=== PATIENT | female | born 1945 | race Caucasian/White ===

== ENCOUNTER 2019-02-07 17:30 | Emergency (ER) | payer MEDICARE ==
[~2019-02-07] VITALS: Ht 154.9 cm; Wt 83.0 kg
[~2019-02-07 17:30] MED LIST: ATENOLOL50 MG PO; FISH OIL500 M1 PO; GABAPENTIN300 MG PO; LISINOPRIL5 MG PO; LOVENOX80 MG/0.8 PO; METFORMIN HCL500 MG PO; VITAMIN D5000 UNIT PO; WARFARIN SODIUM5 MG PO
--- OUTSIDE RECORDS SUMMARY | 2019-02-07 17:35 | XMS REPORT ---
Author Author [facility] Address Unknown Phone Unavailable Care Team Providers Care Shampoo Technician Name Role Phone Rachel PICHARDO Unavailable Unavailable Problems This patient has no known problems. Allergies, Adverse Reactions, Alerts This patient has no known allergies or adverse reactions. Medications This patient has no known medications. Results Test Description Test Time Test Comments Text Results Atomic Results Result Comments CPK 2018-04-09 14:41:00 CPK (test code=CPK) 41 U/L 30-135 REPEAT [id number] 14:41:00* Test Item Value Reference Range Comments CKMB (test code=CKMB) 0.78 ng/ml 0.00-2.37 REPEAT 90MINUTESTROPONIN-I [id number] 14:41:00* Test Item Value Reference Range Comments Troponin-I (test code=TROP) 0.019 ng/ml 0.000-0.034 The 99th Percentile URL is 0.034 ng/mL. The Joint Society of Cardiology/[place] College of Cardiology (ESC/ACC) and the National Academy of Clinical Biochemistry Standards of Laboratory Practices (NACB) recommends that the diagnosis of AMI includes the presence of clinical history suggestive of Acute Coronary Syndrome (ACS) and a maximum concentration of cardiac troponin exceeding the 99th percentile of a normal reference population [upper reference limit (URL)] on at least one occasion during the first 24 hours after the clinical event. REPEAT 90MINUTESXR CHEST 2 PA [id number] 13:59:91YM6Tovnsfhkr: XR CHEST 2 PA LATERALOrder Date: 04/09/2018 12:20 PMOrdering Provider: AUSTIN PICAHRDOClinical Indication: CHEST PAINComparison: NoneFindings:The lungs are clear and well-aerated. No pleural effusion or pneumothorax.Cardiac silhouette is normal in size.Impression:No acute pulmonary process.This final report was electronically signed by Dr Meenu Loaiza MD 04/09/20181:52 PMDictated By: Bobbi LOAIZAte: 04/09/2018 13:59TROPONIN-I [id number] 13:24:00* Test Item Value Reference Range Comments Troponin-I (test code=TROP) 0.022 ng/ml 0.000-0.034 The 99th Percentile URL is 0.034 ng/mL. The Joint Society of Cardiology/[place] College of Cardiology (ESC/ACC) and the National Academy of Clinical Biochemistry Standards of Laboratory Practices (NACB) recommends that the diagnosis of AMI includes the presence of clinical history suggestive of Acute Coronary Syndrome (ACS) and a maximum concentration of cardiac troponin exceeding the 99th percentile of a normal reference population [upper reference limit (URL)] on at least one occasion during the first 24 hours after the clinical event. [id number] 13:24:00* Test Item Value Reference Range Comments CPK (test code=CPK) 43 U/L 30-135 [id number] 13:24:00* Test Item Value Reference Range Comments CKMB (test code=CKMB) 0.84 ng/ml 0.00-2.37 [id number], [id number] 13:24:00* Test Item Value Reference Range Comments Myoglobin (test code=FABRICIO) 67.2 ng/ml 0.0-61.5 ER9 Critical values were called to Sandie Funez in ER by [id number] on 13:24 PM. Results were read back by Sandie Funez in ER. PRO-BNP(B-Type Natriuretic Peptide)2018-04-09 13:24:00* Test Item Value Reference Range Comments Pro-BNP(B-Peptide) (test code=PROBNP) 2160 pg/ml 0-125 THE METHODOLOGY FOR DETECTION OF B-NATRIURETIC PEPTIDE HAS BEEN CHANGED TO "NT pro-BNP". THE NORMAL RANGES HAVE CHANGED. PLEASE NOTE THAT RANGES ARE DEFINED BY THE AGE OF THE PATIENT. (<75 years old=0-125 pg/ml 75years and older=0-450pg/ml). VALUES ARE NOT INTERCHANGEABLE BETWEEN METHODS. 11-26-2006 [id number] 13:03:00* Test Item Value Reference Range Comments Glucose (test code=GLU) 156 mg/dl 75-110 BUN (test code=BUN) 23.0 mg/dl 6.0-17.0 Creatinine (test code=CREA) 1.6 mg/dl 0.4-1.2 Sodium (test code=NA) 150 mmol/l 137-145 Potassium (test code=K) 4.3 mmol/l 3.5-5.0 Chloride (test code=CL) 109 mmol/l 98-107 CO2 (test code=CO2) 24 mmol/l 22-30 Calcium (test code=CALC) 9.0 mg/dl 8.4-10.2 T Protein (test code=TP) 6.8 gm/dl 5.1-8.7 Albumin (test code=ALB) 4.2 gm/dl 3.5-4.6 A/G Ratio (test code=AGRAT) 1.6 % 1.1-2.2 AST (SGOT) (test code=AST) 21 U/L 11-36 ALT (SGPT) (test code=ALT) 22 U/L 11-40 Alkaline Phos (test code=ALKP) 38 U/L 47-114 Total Bilirubin (test code=TBIL) 0.7 mg/dl 0.2-1.2 Globulin (test code=GLOBU) 2.6 gm/dl 2.3-3.5 Calcium, Corrected (test code=CALCCORR) 8.8 mg/dl 8.4-10.2 Various formulas exist for corrected serum calcium results, each yielding different values. This corrected result was based on the formula: Corrected Calcium=SerumCalcium + [0.8 * ( 4 - SerumAlbumin)] EGFR if (test code=EGFRAA) 41 mL/min/1.73m\\S\\2 EGFR if Non- (test code=EGFRNA) 34 mL/min/1.73m\\S\\2 Estimated Glomerular Filtration Rate (eGFR) Reference Intervals Decision Points for 18 years and older and average body mass: >=60 Does not exclude kidney disease. 30 - 59 Suggests moderate chronic kidney disease and indicates the need for further investigation including assessment of proteinuria and cardiovascular factors. < 30 Usually indicates a need for referral for assessment and management of chronic kidney failure. ER9PT AND [id number] 12:59:00* Test Item Value Reference Range Comments Protime (test code=PT) 15.4 seconds 9.0-11.9 INR (test code=INR) 1.5 0.9-1.1 INR results are intended ONLY to monitor Oral Anticoagulant therapy in stablized patients. The INR Therapeutic Range is 2.0 - 3.0 Patients with a mechanical heart, the INR Range is 2.5 - 3.5 [id number] 12:59:00* Test Item Value Reference Range Comments aPTT (test code=PTT) 25.1 seconds 23.0-33.0 ER9CBC WITH AUTO [id number] 12:50:00* Test Item Value Reference Range Comments WBC (test code=WBC) 9.95 10\\S\\3/ul 4.80-10.80 RBC (test code=RBC) 4.16 10\\S\\6/ul 4.20-5.40 Hemoglobin (test code=HGB) 12.5 gm/dl 12.0-14.0 Hematocrit (test code=HCT) 39.1 % 37.0-47.0 MCV (test code=MCV) 94.0 fL 81.0-99.0 MCH (test code=MCH) 30.0 pg 27.0-31.0 MCHC (test code=MCHC) 32.0 gm/dl 33.0-37.0 RDW (test code=RDWVC) 13.2 % 11.5-14.5 Platelet (test code=PLT) 191 10\\S\\3/ul 130-400 MPV (test code=MPV) 11.3 fL 7.4-10.4 "NOT MEASURED" RESULTS ARE DISPLAYED WHEN THE INSTRUMENT HAS A SUPPRESSED OR UNREPORTABLE RESULT. THIS WILL MOST OFTEN HAPPEN WITH THE MPV WHEN THERE IS AN ABNORMAL PLATELET DISTRIBUTION DUE TO A CR ITICAL LOW VALUE OR PLATELET CLUMPING. THE RDW MAY BE SUPPRESSED IF THERE ARE MULTIPLE PEAKS PRESENT ON THE RBC HISTOGRAM. IN THIS CASE, A MANUAL REVIEW OF THE SLIDE WILL BE PERFORMED, AND RBC MORPHOLOGY WILL BE NOTED ON THE REPORT. NE% (test code=NE) 76.8 % 42.0-75.0 LY% (test code=LY) 13.6 % 13.0-42.0 MO% (test code=MO) 7.5 % 4.0-14.0 EO% (test code=EO) 0.9 % 1.0-3.0 BA% (test code=BA) 0.6 % 1.0-3.0 IG% (test code=IG%) 0.6 % 0.0-0.4 ER9
--- OUTSIDE RECORDS SUMMARY | 2019-02-07 17:35 | XMS REPORT | Clinical Summary ---
Author Author [facility] Address Unknown Phone Unavailable Care Team Providers Care Supervisor Brine Name Role Phone Demarcus Cho MD PCP Unavailable Allergies No Known Allergies Medications End Date Status Medication Sig Dispensed Refills Start Date Active simvastatin (ZOCOR) 20 MG Take 20 mg by 0 tablet mouth nightly. Active atenolol (TENORMIN) 50 MG Take 50 mg by 0 tablet mouth daily. Active metFORMIN (GLUCOPHAGE) Take 500 mg 0 500 MG tablet by mouth 2 (two) times daily with breakfast and dinner. Active olopatadine (PATANOL) 0.1 Place 1 drop 0 % ophthalmic solution into both eyes 2 (two) times daily. Active aspirin 81 MG EC tablet Take 81 mg by 0 mouth daily. Active cholecalciferol, vitamin Take 2,000 mg 0 D3, 2,000 unit Cap by mouth daily. Active warfarin (COUMADIN) 5 MG Take 5 mg by 0 tablet mouth every Sunday, Sunday, Sunday Take 7 mg Sunday, , Sunday and Sunday . 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 Last Filed Vital Signs Not on file Plan of Treatment Not on file Implants Device Identifier Shelf Expiration Date Model / Serial / Lot Implanted Type Area Manufactur er 04/19/2016 [id number] / / [id number] Stent,Uret F/G Contour Injeciton Uro Stent Right: Ureter [place] 6.0/26 - [id number] [employer] Implanted: Qty: 1 on 12/10/2014 by Moise Lucero MD Results Not on fileafter 02/06/2018 Insurance Payer Benefit Subscriber ID Type Phone Address Plan / Group [facility] xxxxxxxxxxx MEDICARE ADV Advance Directives For more information, please contact: [address] [address] Date Inactivated Comments Code Status Date Activated 12/14/2014 5:31 PM Full Code 12/10/2014 11:50 PM This code status was determined by: Patient 10/31/2014 5:35 PM Full Code 10/26/2014 8:49 PM This code status was determined by: Patient
--- OUTSIDE RECORDS SUMMARY | 2019-02-07 17:35 | XMS REPORT | Continuity of Care Document ---
Author Author [facility] Address [address] [place] [address] ;ext= Care Team Providers Care Rug Cleaner Hand Name Role Phone AUSTIN PICHARDO Admphys AUSTIN PICHARDO Att[facility] Hospital Admission Diagnosis Code Admission Diagnosis Date [id number] Chest pain Social History Element Description Code Description Smoking Status Code System Start Date End Date Smoking Status [id number] Never smoker SNOMED-CT Problems Code Code System Problem Name Start Date End Date Status [id number] SNOMED-CT Neck sprain [address] Description [id number] Drug Treatment Unknown Allergies * No Allergy Data in the System Results Laboratory Results Order: CKMB LOINC Test Result Flag Range Unit Date 1CKMB 0.78 0.00-2.37 ng/ml 04/09/2018 14:01 * Performing Lab Footnotes:* [address] [place] [address] - [id number] - [address] [place] [address] [place] [address] [facility] - MD: DIRECTOR SHAMA GUTEIRREZ Order: CPK LOINC Test Result Flag Range Unit Date 1CPK 41 30-135 U/L 04/09/2018 14:01 * Performing Lab Footnotes:* [facility] [id number] [facility] [address] [facility] [address]ER [address] [place] [address] MEIR High MD: DIRECTOR SHAMA GUTIERREZ Order: TROPONIN I QUANTITATIVE LOINC Test Result Flag Range Unit Date 1Troponin-I 0.019 0.000-0.034 ng/ml 04/09/2018 14:01 Note: The 99th Percentile URL is 0.034 ng/mL. The Joint Society of Cardiology/[place] [employer] (ESC/ACC) and the National [...] first 24 hours after the clinical event. * Performing Lab Footnotes:* [address] [place] [address] - [id number] - [address] [facility] [address]ER [address] [place] [address] MEIR High MD: DIRECTOR SHAMA GUTIERREZ Order: CBC PLATELET AUTO DIFF LOINC Test Result Flag Range Unit Date 76503-5 1Leukocytes^^corrected for nucleated erythrocytes:NCnc:Pt:Bld:Qn:Automated count 9.95 4.80-10.80 10^3/ul 04/09/2018 12:35 789-8 1Erythrocytes:NCnc:Pt:Bld:Qn:Automated count 4.16 L 4.20-5.40 10^6/ul 04/09/2018 12:35 718-7 1Hemoglobin:MCnc:Pt:Bld:Qn 12.5 12.0-14.0 gm/dl 04/09/2018 12:35 4544-3 1Hematocrit:VFr:Pt:Bld:Qn:Automated count 39.1 37.0-47.0 % 04/09/2018 12:35 787-2 1Erythrocyte mean corpuscular volume:EntVol:Pt:RBC:Qn:Automated count 94 81.0-99.0 fL 04/09/2018 12:35 785-6 1Erythrocyte mean corpuscular hemoglobin:EntMass:Pt:RBC:Qn:Automated count 30 27.0-31.0 pg 04/09/2018 12:35 786-4 1Erythrocyte mean corpuscular hemoglobin concentration:MCnc:Pt:RBC:Qn:Automated count 32 L 33.0-37.0 gm/dl 04/09/2018 12:35 788-0 1Erythrocyte distribution width:Ratio:Pt:RBC:Qn:Automated count 13.2 11.5-14.5 % 04/09/2018 12:35 777-3 1Platelets:NCnc:Pt:Bld:Qn:Automated count 191 130-400 10^3/ul 04/09/2018 12:35 69009-8 1Platelet mean volume:EntVol:Pt:Bld:Qn:Automated count 11.3 A 7.4-10.4 fL 04/09/2018 12:35 Note: 'NOT MEASURED' RESULTS ARE DISPLAYED WHEN THE INSTRUMENT HAS A SUPPRESSED OR UNREPORTABLE RESULT. THIS WILL MOST OFTEN HAPPEN WITH THE MPV WHEN THERE IS AN ABNORMAL PLATELET DISTRIBUTION DUE TO A CRITICAL LOW VALUE OR PLATELET CLUMPING. THE RDW MAY BE SUPPRESSED IF THERE ARE MULTIPLE PEAKS PRESENT ON THE RBC HISTOGRAM. IN THIS CASE, A MANUAL REVIEW OF THE SLIDE WILL BE PERFORMED, AND RBC MORPHOLOGY WILL BE NOTED ON THE REPORT. 770-8 1Neutrophils/100 leukocytes:NFr:Pt:Bld:Qn:Automated count 76.8 H 42.0-75.0 % 04/09/2018 12:35 736-9 1Lymphocytes/100 leukocytes:NFr:Pt:Bld:Qn:Automated count 13.6 13.0-42.0 % 04/09/2018 12:35 5905-5 1Monocytes/100 leukocytes:NFr:Pt:Bld:Qn:Automated count 7.5 4.0-14.0 % 04/09/2018 12:35 713-8 1Eosinophils/100 leukocytes:NFr:Pt:Bld:Qn:Automated count 0.9 L 1.0-3.0 % 04/09/2018 12:35 706-2 1Basophils/100 leukocytes:NFr:Pt:Bld:Qn:Automated count 0.6 L 1.0-3.0 % 04/09/2018 12:35 1IG% 0.6 H 0.0-0.4 % 04/09/2018 12:35 * Performing Lab Footnotes:* [address] [place] [address] - [id number] - [address] [place] [address] [place] - MD: DIRECTOR SHAMA GUTIERREZ Order: CMP COMPREHENSIVE METABOLIC PANEL LOINC Test Result Flag Range Unit Date 88053 1Glucose:MCnc:Pt:Urine:Qn 156 H 75-110 mg/dl 04/09/2018 12:35 3094-0 1Urea nitrogen:MCnc:Pt:Ser/Plas:Qn 23 H 6.0-17.0 mg/dl 04/09/2018 12:35 2160-0 1Creatinine:MCnc:Pt:Ser/Plas:Qn 1.6 H 0.4-1.2 mg/dl 04/09/2018 12:35 2951-2 1Sodium:SCnc:Pt:Ser/Plas:Qn 150 H 137-145 mmol/l 04/09/2018 12:35 2823-3 1Potassium:SCnc:Pt:Ser/Plas:Qn 4.3 3.5-5.0 mmol/l 04/09/2018 12:35 5-0 1Chloride:SCnc:Pt:Ser/Plas:Qn 109 H 98-107 mmol/l 04/09/2018 12:35 8-9 1Carbon dioxide:SCnc:Pt:Ser/Plas:Qn 24 22-30 mmol/l 04/09/2018 12:35 35364-2 1Calcium:MCnc:Pt:Ser/Plas:Qn 9 8.4-10.2 mg/dl 04/09/2018 12:35 2885-2 1Protein:MCnc:Pt:Ser/Plas:Qn 6.8 5.1-8.7 gm/dl 04/09/2018 12:35 1751-7 1Albumin:MCnc:Pt:Ser/Plas:Qn 4.2 3.5-4.6 gm/dl 04/09/2018 12:35 1A/G Ratio 1.6 1.1-2.2 % 04/09/2018 12:35 1920-8 1Aspartate aminotransferase:CCnc:Pt:Ser/Plas:Qn 21 11-36 U/L 04/09/2018 12:35 1742-6 1Alanine aminotransferase:CCnc:Pt:Ser/Plas:Qn 22 11-40 U/L 04/09/2018 12:35 6768-6 1Alkaline phosphatase:CCnc:Pt:Ser/Plas:Qn 38 L 47-114 U/L 04/09/2018 12:35 1975-2 1Bilirubin:MCnc:Pt:Ser/Plas:Qn 0.7 0.2-1.2 mg/dl 04/09/2018 12:35 1Globulin 2.6 2.3-3.5 gm/dl 04/09/2018 12:35 1Calcium, Corrected 8.8 8.4-10.2 mg/dl 04/09/2018 12:35 Note: Various formulas exist for corrected serum calcium results, each yielding different values. This corrected result was based on the formula: Corrected Calcium=SerumCalcium + [0.8 * ( 4 - SerumAlbumin)] 1EGFR if 41 mL/min/1.73m^2 04/09/2018 12:35 1EGFR if Non- 34 mL/min/1.73m^2 04/09/2018 12:35 Note: Estimated Glomerular Filtration Rate (eGFR) Reference Intervals Decision Points for 18 years and older and average body mass: >=60 Does not exclude kidney disease. 30 - 59 Suggests moderate chronic kidney disease and indicates the need for further investigation including assessment of proteinuria and cardiovascular factors. < 30 Usually indicates a need for referral for assessment and management of chronic kidney failure. * Performing Lab Footnotes:* [address] [place] [address] [id number] - [address] [address] [facility] Lennox LEYVA: DIRECTOR SHAMA GUTIERREZ Order: MYOGLOBIN PLASMA LOINC Test Result Flag Range Unit Date 1Myoglobin 67.2 HH 0.0-61.5 ng/ml 04/09/2018 12:35 * Performing Lab Footnotes:* [address] [place] [address] [id number] - [address] [facility] [address] [address] MEIR High MD: DIRECTOR SHAMA GUTIERREZ Order: PRO BNP B - NATRIURETIC PEPTIDE LOINC Test Result Flag Range Unit Date 19344-5 1Natriuretic peptide.B prohormone N-Terminal:MCnc:Pt:Ser/Plas:Qn 2160 H 0-125 pg/ml 04/09/2018 12:35 Note: THE METHODOLOGY FOR DETECTION OF B-NATRIURETIC PEPTIDE HAS BEEN CHANGED TO 'NT pro-BNP'. THE NORMAL RANGES HAVE CHANGED. PLEASE NOTE THAT RANGES ARE DEFINED BY THE AGE OF THE PATIENT. (<75 years old=0-125 pg/ml 75years and older=0-450pg/ml). VALUES ARE NOT INTERCHANGEABLE BETWEEN METHODS. 11-26-2006 * Performing Lab Footnotes:* [address] [place] [address] - [id number] - [address] [facility] [address] [address] MEIR High MD: DIRECTOR SHAMA GUTIERREZ Order: PROTIME PT INR LOINC Test Result Flag Range Unit Date 5901-12 1Coagulation tissue factor induced:Time:Pt:PPP:Qn:Coag 15.4 H 9.0-11.9 seconds 04/09/2018 12:35 6301-6 1Coagulation tissue factor induced.INR:RelTime:Pt:PPP:Qn:Coag 1.5 H 0.9-1.1 04/09/2018 12:35 Note: INR results are intended ONLY to monitor Oral Anticoagulant therapy in stablized patients. The INR Therapeutic Range is 2.0 - 3.0 Patients with a mechanical heart, the INR Range is 2.5 - 3.5 * Performing Lab Footnotes:* [address] [place] [address] - [id number] - [address] [facility] [address] [address] MEIR High MD: DIRECTOR SHAMA GUTIERREZ Order: PTT PARTIAL THROMBOPLASTIN TM LOINC Test Result Flag Range Unit Date 01728-7 1Coagulation surface induced:Time:Pt:PPP:Qn:Coag 25.1 23.0-33.0 seconds 04/09/2018 12:35 * Performing Lab Footnotes:* [address] [place] [address] - [id number] - [address] [address] [facility] - MD: DIRECTOR SHAMA GUTIERREZ Radiology Results Order: [id number] XR CHEST 2 PA LATERAL* Exam Completion Date:04/09/2018 12:20 Procedure: XR CHEST 2 PA LATERAL Order Date: 04/09/2018 12:20 PMOrdering Provider: AUSTIN PICHARDOClinical Indication: CHEST PAINComparison: None Findings: The lungs are clear and well-aerated. No pleural effusion or pneumotho rax.Cardiac silhouette is normal in size.Impression: No acute pulmonary process. This final report was electronically signed by Dr Meenu Loaiza MD 04/09/20181:5 2 PMDictated By: CARLOS ENRIQUE LOAIZAKDate: 04/09/2018 13:59 Vital Signs Vitals Value Date Body Temperature 97.6 F 04/09/2018 Respiratory Rate 16 04/09/2018 O2% BldC Oximetry 98 04/09/2018 BP Systolic 106 mmHg 04/09/2018 BP Diastolic 67 mmHg 04/09/2018 Height 65 in 04/09/2018 Weight Measured 179.89 lbs 04/09/2018 BSA (Body Surface Area) 1.54333 04/09/2018 BMI (Body Mass Index) 29.9 04/09/2018 Plan of Care * No data in the system Procedures Code Code System Procedure Name Target Site Date of Procedure XR CHEST 2 PA LATERAL 04/09/2018 13:59 Encounters Date Code Diagnosis Status (ICD10) - S115PMB STRN MUSC FASC TENDON NECK LEVL INT Active Immunizations * No data in the system Functional Status * No data in the system Hospital Discharge Instructions * Discharge Instructions 2* Discharge Diagnosis* cervical strain * Important Information* Consult your physician or return to the Emergency Department immediately if worse, if not better as expected, or if any problems arise. * Follow Up Care* Yes * Important Information* Please understand that you have received care only on an emergency basis. If your condition does not improve, you should call your personal physician for follow-up care. If you do not have a physician, you may call the referred physician listed. * If you have questions about your care or these discharge instructions, you may call the Emergency Department. Please take your discharge paperwork with you to any follow-up appointments. * Follow-Up With:* Primary Care Physician * Medication* While you were in the Emergency Department, you were given medication that may cause sedation. You may feel sleepy or light headed. Do not drive for 4-6 hours after discharge. * DO NOT drink alcohol, drive or operate machinery if taking medicines which cause drowsiness or make you feel light-headed. * Follow up Provider 1* primary dr 5-6 days * Diet* Regular * Patient Teaching* Patient education provided * Pain Control
--- NOTE | 2019-02-08 12:05 | Diagnostic Imaging Report ---
EXAM: Unilateral Lower Extremity Venous Duplex Ultrasound INDICATION: Leg pain and swelling ^[id number] ^1999 COMPARISON: None TECHNIQUE: Wolfe scale, color Doppler and spectral waveform analysis of the right lower extremity deep venous system was performed. FINDINGS: Common Femoral: Fully compressible with normal spontaneous waveforms. Proximal Greater Saphenous: Fully compressible. Femoral: Fully compressible with normal spontaneous waveforms. Normal response to augmentation. Proximal Deep Femoral: Normal spontaneous waveforms. Popliteal: Fully compressible with normal spontaneous waveforms. IMPRESSION: No evidence of deep venous thrombosis above the right calf. Signed by: Dr. Yani Kelsey MD on 02/08/2019 12:02 PM
== END 2019-02-07 20:43 | disposition home or self-care (01) ==
LOC: FSED 17:30
DX: M79.661 Pain in right lower leg (principal); M25.571 Pain in right ankle and joints of right foot; R60.9 Edema, unspecified; I10 Essential (primary) hypertension; E11.9 Type 2 diabetes mellitus without complications; Z86.718 Personal history of other venous thrombosis and embolism; Z85.528 Personal history of other malignant neoplasm of kidney
CPT/HCPCS: 93971; 99283

== ENCOUNTER 2019-12-18 12:09 | Emergency (ER) | payer MEDICARE ==
[~2019-12-18] VITALS: Ht 154.9 cm; Wt 83.0 kg
--- OUTSIDE RECORDS SUMMARY | 2019-12-18 12:12 | XMS REPORT | Summary of Care ---
Author Author [facility] Address Unknown Phone Unavailable Care Team Providers Care Field Insurance Sales Manager Name Role Phone PCP Unavailable Reason for Visit * Reason Comments Post-op Follow-up Encounter Details Care Team Description Date Type Department Santana Ribera MD [address] [place] [address] Post-op Follow-up 07/28/2019 Office Visit [facility] [address], [address] [place] [address] Allergies No Known Allergiesdocumented as of this encounter (statuses as of 08/01/2019) Medications End Date Status Medication Sig Dispensed Refills Start Date Active aspirin EC 81 MG TBEC Take 81 mg by 0 mouth. Active amlodipine (NORVASC) 10 Take 10 mg by 0 MG tablet mouth. 9 Active atenolol (TENORMIN) 50 MG Take 50 mg by 0 tablet mouth. 9 Active baclofen (LIORESAL) 10 MG Take 10 mg by 0 tablet mouth. 8 Active Cholecalciferol (VITAMIN Take by 0 D3) 2000 units TABS mouth. Active enoxaparin (LOVENOX) 80 Inject 1 0 MG/0.8ML injection syringe into 9 the skin twice a day as instructed by the coumadin clinic Active fexofenadine (FAUSTO) Take 180 mg 0 180 MG tablet by mouth. 9 Active furosemide (LASIX) 40 MG Take 40 mg by 0 tablet mouth. 9 Active gabapentin (NEURONTIN) TAKE ONE 0 600 MG tablet TABLET BY 8 MOUTH THREE TIMES A DAY Active lisinopril (PRINIVIL, Take 2.5 mg 0 ZESTRIL) 2.5 MG tablet by mouth. Active tramadol (ULTRAM) 50 MG Take 50 mg by 0 tablet mouth. 9 Active warfarin (COUMADIN) 5 MG Take 2.5 mg 0 tablet by mouth. 9 Active simvastatin (ZOCOR) 20 MG TAKE ONE 0 tablet TABLET BY 9 MOUTH EVERY DAY AT BEDTIME documented as of this encounter (statuses as of 08/01/2019) Active Problems Not on filedocumented as of this encounter (statuses as of 08/01/2019) Social History Date Tobacco Use Types Packs/Day Years Used Never Smoker Smokeless Tobacco: Never Used Drinks/Week oz/Week Comments Alcohol Use Not Currently Sex Assigned at Date Recorded Not on file Industry Job Start Date Occupation Not on file Not on file Not on file Travel End Travel History Travel Start No recent travel history available. documented as of this encounter Last Filed Vital Signs Reading Time Taken Comments Vital Sign 138/87 07/28/2019 9:42 AM CDT Blood Pressure 51 07/28/2019 9:42 AM CDT Pulse - - Temperature 18 07/28/2019 9:42 AM CDT Respiratory Rate - - Oxygen Saturation - - Inhaled Oxygen Concentration 81.6 kg (180 lb) 07/28/2019 9:42 AM CDT Weight 154.9 cm (5' 1") 07/28/2019 9:42 AM CDT Height 34.01 07/28/2019 9:42 AM CDT Body Mass Index documented in this encounter Progress Notes * Santana Ribera MD - 07/28/2019 9:30 AM CDT Reason for visit: Post op visit. I had the pleasure of seeing Ms. Multani at the neurosurgery clinic. The patien t is a 73 y.o. female, about 3 months post op, who underwent C4-6 ACDFP on for C4-C5 and C5-C6 disc herniations, cervical kyphosis, cervical spondylotic myelop athy. Pt is doing very well. She reports near complete resolution of her neck pain a nd arm numbness and is very pleased with the outcome of her surgery Patient retu rns for follow up to discuss their progress. CURRENT MEDICATIONS: Current Outpatient Medications Medication Sig Dispense Refill amlodipine (NORVASC) 10 MG tablet Take 10 mg by mouth. aspirin EC 81 MG TBEC Take 81 mg by mouth. atenolol (TENORMIN) 50 MG tablet Take 50 mg by mouth. baclofen (LIORESAL) 10 MG tablet Take 10 mg by mouth. Cholecalciferol (VITAMIN D3) 2000 units TABS Take by mouth. enoxaparin (LOVENOX) 80 MG/0.8ML injection Inject 1 syringe into the skin tw ice a day as instructed by the coumadin clinic fexofenadine (FAUSTO) 180 MG tablet Take 180 mg by mouth. furosemide (LASIX) 40 MG tablet Take 40 mg by mouth. gabapentin (NEURONTIN) 600 MG tablet TAKE ONE TABLET BY MOUTH THREE TIMES A DAY lisinopril (PRINIVIL, ZESTRIL) 2.5 MG tablet Take 2.5 mg by mouth. simvastatin (ZOCOR) 20 MG tablet TAKE ONE TABLET BY MOUTH EVERY DAY AT BEDTI PA tramadol (ULTRAM) 50 MG tablet Take 50 mg by mouth. warfarin (COUMADIN) 5 MG tablet Take 2.5 mg by mouth. No current facility-administered medications for this visit. REVIEW OF SYSTEMS: General ROS: negative for - chills, hot flashes, malaise or night sweats Respiratory ROS: no cough, shortness of breath, or wheezing Cardiovascular ROS: no chest pain or dyspnea on exertion Musculoskeletal ROS: negative for - joint stiffness, joint swelling or muscular weakness Neurological ROS: negative for - bowel and bladder control changes, confusion, s eizures or visual changes PHYSICAL EXAM: Vitals: 07/28/19 0942 BP: 138/87 Pulse: 51 Resp: 18 Weight: 180 lb (81.6 kg) Height: 5' 1" (1.549 m) Patient is oriented to person, place and time. CN 2-12 are grossly intact bilaterally Motor exam: UE D B T WF WE IM Rt 5/5 5/5 5/5 5/5 5/5 5/5 Lt 5/5 5/5 5/5 5/5 5/5 5/5 LE: IP KE KF DF PF EHL Rt 5/5 5/5 5/5 5/5 5/5 5/5 Lt 5/5 5/5 5/5 5/5 5/5 5/5 Sensory exam : intact to light touch DTR: 2+ throughout Incision: Anterior cervical incision healing well without drainage, erythema, o r edema. Cervical spine X-rays ([facility]) dated 07/10/19- surgical hardware is intact and i n good alignment without evidence of failure or loosening. DIAGNOSIS: Encounter Diagnosis and Orders ICD-10-CM 1. S/P cervical spinal fusion Z98.1 ASSESSMENT/PLAN: Ms. Casandra Multani is a pleasant 73 y.o. female, about 2 weeks post op, who underwent C4-6 ACDFP on 05/02/19 for C4-C5 and C5-C6 disc herniations, cervic al kyphosis, cervical spondylotic myelopathy. Patient is doing very well. Incisi on is healing well without s/sx of infection. We discussed the surgical procedur e performed and expected post operative course. We will see Casandra Lopez ere at 3 months post op. We will get imaging studies (Cervical spine AP/lateral X-rays at [facility]) on our next visit. documented in this encounter Plan of Treatment Health Maintenance Due Date Last Done Comments COLON CANCER SCREENIN1945 COLONOSCOPY MAMMOGRAM ANNUAL 1945 MEDICARE AW 1945 BMI FOLLOW UP PLAN 1963 HEPATITIS C SCREENING 1963 OSTEOPOROSIS SCREENING 2010 FLU VACCINE > 6 MONTHS 06/19/2019 FALL SCREEN 07/28/2020 07/28/2019 TETANUS SHOT (ADULT) 01/05/2026 01/05/2016 PNEUMOVAX >=65 (PPSV23) Completed 10/27/2010 PREVNAR >=65 (PCV13) Completed 01/04/2016 documented as of this encounter Results Not on filedocumented in this encounter Visit Diagnoses Diagnosis S/P cervical spinal fusion - Primary Arthrodesis status documented in this encounter Insurance Type Payer Benefit Subscriber ID Effective Phone Address Plan / Dates Group Medicare [facility]-P [id number] [place], [place] [address] O documented as of this encounter
[2019-12-18] MEDS ORDERED: ALBUTEROL/IPRATROPIUM 3 ML NEB NEB ONE (12:45)
[2019-12-18] MEDS ORDERED: VENTOLIN HFA18 GM PO (13:11)
[2019-12-18] MEDS ORDERED: TESSALON PERLE100 MG PO (13:11)
[2019-12-18] MEDS ORDERED: ALBUTEROL/IPRATROPIUM 3 ML NEB ONE (13:19)
--- NOTE | 2019-12-18 13:54 | Diagnostic Imaging Report ---
Clinical History: ^cough Comparison Study: None Findings: The heart and lungs are within normal limits. The pleural spaces are clear. There is no pneumothorax. Degenerative changes abnormalities are seen. Impression: No active cardiopulmonary disease. Signed by: Keron Scott MD on 12/18/2019 1:51 PM
[2019-12-18 14:13] VITALS: BP 127/72
== END 2019-12-18 14:15 | disposition home or self-care (01) ==
LOC: FSED 12:09
DX: M79.661 Pain in right lower leg (principal); M25.571 Pain in right ankle and joints of right foot; R60.9 Edema, unspecified; I10 Essential (primary) hypertension; E11.9 Type 2 diabetes mellitus without complications; Z86.718 Personal history of other venous thrombosis and embolism; Z85.528 Personal history of other malignant neoplasm of kidney
CPT/HCPCS: 71046; 87400; 99283

== ENCOUNTER 2020-06-21 11:05 | Emergency (ER) | payer MEDICARE ==
[~2020-06-21] VITALS: Ht 154.9 cm; Wt 83.0 kg
[~2020-06-21 11:05] MED LIST changes: +TESSALON PERLE100 MG PO; +VENTOLIN HFA18 GM PO
[2020-06-21] MEDS ORDERED: HYDROCODONE/APAP 5MG-325MG TAB PO ONE (12:30)
[2020-06-21] MEDS ORDERED: SODIUM CHLORIDE FLUSH 10 ML SYR INJ PRN (12:30)
--- OUTSIDE RECORDS SUMMARY | 2020-06-21 12:37 | XMS REPORT | Continuity of Care Document ---
Author Author [facility] t Organization [facility] Address [address] [place] [address] Phone Unavailable Care Team Providers Care Embedded Firmware Developer Name Role Phone BRUNO LEYVA, DERECK PCP Unavailable France Romero MD Attphys Unavailable 1, [address] [facility] Attphys Unavailable Janet DORAN Attphys Unavailable Santana Romero MD Attphys FRANCE ROMERO Attphys Unavailable Tomás SOLANO Attphys Unavailable KAELYN PICHARDO Attphys Unavailable FRANCE ROMERO Admphys Unavailable Rachel PICHARDO Admphys Unavailable Payers Payer Name Policy Type Policy Number Effective Date Expiration Date Aditya mcclain KELSEYCAREKELSEYCARE MEDICARE ADVxxxxxxxxxxx xxxxxxxxxxx [facility] [employer]sey [employer] Medicare Advantage [id number] 2010 00:0 0:00 [facility] Problems Condition Name Condition Details Condition Category Status Onset Date Resolution Date Last Treatment Date Treating Clinician Comments Source Cervical myelopathy Cervical myelopathy Disease Active 2019-05-02 00:00 :00 [facility] Cervical spondylitis Cervical spondylitis Disease Active 00:00:00 [facility] Renal mass, left Renal mass, left Disease Active 2014-12-10 00:00:00 [facility] Abdominal pain of unknown etiology Abdominal pain of unknown do ology Disease Active 2014-10-29 00:00:00 [facility] Renal cell carcinoma Renal cell carcinoma Disease Active 00:00:00 [facility] PAF (paroxysmal atrial fibrillation), CHADS 2 Score = 2 (HTN+ DM) PAF (paroxysmal atrial fibrillation), CHADS 2 Score = 2 (HTN+ DM) Disease Active 2014-10-28 00:00:00 [facility] Normal cardiac stress test, ETT: negative (06-07-11) No rmal cardiac stress test, ETT: negative (06-07-11) Disease Active 2014-10-28 00:00:00 [facility] Dizziness and giddiness Dizziness and giddiness Disease Active 2014-10-26 00:00:00 [facility] Left sided abdominal pain Left sided abdominal pain Disease Ac tive 2014-10-26 00:00:00 [facility] New onset atrial fibrillation New onset atrial fibrillation Disease Active 2014-10-26 00:00:00 [facility] Leg DVT (deep venous thromboembolism), chronic, left L eg DVT (deep venous thromboembolism), chronic, left Disease Active 2014-10-26 00:00:00 [facility] 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 2014-10-26 00:00:00 [facility] Splenic artery aneurysm Splenic artery aneurysm Disease Active 2014-10-26 00:00:00 [facility] Splenic infarction Splenic infarction Disease Active 2014-10-26 00:00:0 0 [facility] DM type 2 (diabetes mellitus, type 2) DM type 2 (diabetes me llitus, type 2) Disease Active 2014-10-26 00:00:00 [facility] HTN (hypertension), echo: EF 60% , +1 MR, (10-27-14) H TN (hypertension), echo: EF 60% , +1 MR, (10-27-14) Disease Active 2014-10-26 00:00:00 [facility] Dyslipidemia Dyslipidemia Disease Active 2014-10-26 00:00:00 [facility] Left renal mass Left renal mass Disease Active 2014-10-26 00:00:00 [facility] Sleep disorder breathing Sleep disorder breathing Disease Acti ve 2014-10-26 00:00:00 [facility] GERD (gastroesophageal reflux disease) GERD (gastroesophagea l reflux disease) Disease Active 2014-10-26 00:00:00 [facility] Neck sprain Neck sprain Problem Active [facility] (LUF/LEVI/SA) Allergies, Adverse Reactions, Alerts Allergy Name Allergy Type Status Severity Reaction(s) Onset Date Inacti ve Date Treating Clinician Comments Source Methylprednisolone Allergy to Substance Active rash 2019-02-07 0 0:00:00 [facility] Losartan Potassium Propensity to adverse reactions Active Itching 2018-12-09 00:00:00 [facility] Methylprednisolone Propensity to adverse reactions Active Itching, Rash 2016-08-07 00:00:00 Face turned red and warm john ng with itching [facility] Social History Social Habit Start Date Stop Date Quantity Comments Source Sex Assigned At [facility] Smoking Status Start Date Stop Date Source Never smoker [facility] Medications Ordered Medication Name Filled Medication Name Start Date Stop Da te Current Medication? Ordering Clinician Indication Dosage Frequency Signature (SIG) Comments Components Source metFORMIN (GLUCOPHAGE) 500 MG tablet 2020-01-13 07:19: 51 2020-01-13 00:00:00 No 500mg Take 500 mg by mouth 2 (two) times daily with breakfast and dinner. [facility] Albuterol Sulfate (Ventolin Hfa) 18 Gm Hfa.aer.ad Albu terol Sulfate (Ventolin Hfa) 18 Gm Hfa.aer.ad 2019-12-18 00:00:00 Yes Ayah Doran Md 2 Four Times Daily as needed for Cough [facility] Benzonatate (Tessalon Perle) 100 Mg Capsule Benzonatat e (Tessalon Perle) 100 Mg Capsule 2019-12-18 00:00:00 Yes Ayah Doran Md 100 Three Times A Day as needed for Cough [facility] glimepiride (AMARYL) 1 MG tablet 2019-10-08 00:00:00 Yes 1mg Take 1 mg by mouth. [facility] furosemide (LASIX) 40 MG tablet 2019-07-10 00:00:00 Yes 40mg Take 40 mg by mouth. [facility] gabapentin (NEURONTIN) 300 MG capsule 2019-04-22 10:58:04 Yes 300mg [id number] Take 300 mg by mouth 3 (three) times daily. [facility] traMADol (ULTRAM) 50 mg tablet 2019-04-22 10:58:04 Yes 50mg Take 50 mg by mouth every 6 (six) hours as needed for Pain. [facility] lisinopril (PRINIVIL,ZESTRIL) 2.5 MG tablet 2019-04-22 10:58:04 Yes 2.5mg QD Take 2.5 mg by mouth daily. [facility] warfarin (COUMADIN) 5 MG tablet 2019-04-22 10:52:14 Yes 2.5mg QD Take 2.5 mg by mouth daily . [facility] enoxaparin (LOVENOX) 80 mg/0.8 mL Syrg 2019-04-22 00:00:00 Yes Inject 1 syringe into the skin twice a day as instructed by the coumadin clinic [facility] amLODIPine (NORVASC) 10 MG tablet 2019-03-31 00:00:00 Yes 10mg Take 10 mg by mouth. [facility] fexofenadine (FAUSTO) 180 MG tablet 2018-12-09 00:00:00 Ye s 180mg Take 180 mg by mouth. [facility] cholecalciferol, vitamin D3, 2,000 unit Cap 2014-10-27 11:53:35 Yes 2000mg QD Take 2,000 mg by mouth daily. [facility] olopatadine (PATANOL) 0.1 % ophthalmic solution 2014-10-26 20:43 :18 Yes 1[drp] Q.5D Place 1 drop into both eyes 2 (two) times daily. [facility] aspirin 81 MG EC tablet 2014-10-26 20:43:18 Yes 81mg QD Take 81 mg by mouth daily. [facility] simvastatin (ZOCOR) 20 MG tablet 2014-10-26 09:29:11 Yes 20mg QD Take 20 mg by mouth nightly. [facility] atenolol (TENORMIN) 50 MG tablet 2014-10-26 09:29:11 Yes 50mg QD Take 50 mg by mouth daily. [facility] Atenolol 50 Mg Tablet Atenolol 50 Mg Tablet Yes 50 Daily [facility] Cholecalciferol (Vitamin D3) (Vitamin D) 5,000 Unit [place] Cholecalciferol (Vitamin D3) (Vitamin D) 5,000 Unit Tablet Yes 5000 Daily [facility] Enoxaparin Sodium (Lovenox) 80 Mg/0.8 Ml Inj Enoxapari n Sodium (Lovenox) 80 Mg/0.8 Ml Inj Yes 80 Twice A Day [facility] Gabapentin 300 Mg Capsule Gabapentin 300 Mg Capsule Yes 300 Bedtime [facility] Lisinopril 5 Mg Tablet Lisinopril 5 Mg Tablet Yes 5 Daily [facility] Metformin Hcl 500 Mg Tablet Metformin Hcl 500 Mg Tablet Yes 500 Twice A Day [facility] Agenda-3 Fatty Acids (Fish Oil) 500 Mg Capsule. Agenda -3 Fatty Acids (Fish Oil) 500 Mg Capsule. Yes 500 Daily I [facility] Warfarin Sodium (Coumadin) 5 Mg Tablet Warfarin Sodium (Coumadin ) 5 Mg Tablet Yes 5 Daily [facility] Vital Signs Vital Name Observation Time Observation Value Comments Source Systolic blood pressure 2020-01-13 09:45:00 116 mm[Hg] [facility] Diastolic blood pressure 2020-01-13 09:45:00 81 mm[Hg] [facility] Heart rate 2020-01-13 09:45:00 69 /min [facility] Respiratory rate 2020-01-13 09:45:00 20 /min [facility] Oxygen saturation in Arterial blood by Pulse oximetry 01-13 09:45:00 98 /min [facility] Body temperature 2020-01-13 08:40:00 36.83 Mady [facility] Body Temperature 2018-04-09 12:27:00 97.6 F [facility] (LUF/LEVI/SA) Respiratory Rate 2018-04-09 12:27:00 16 /min [facility] (F/LEVI/SA) O2% BldC Oximetry 2018-04-09 12:27:00 98 % [facility] (LUF/LEVI/SA) BP Systolic 2018-04-09 12:27:00 106 mm[Hg] [facility] (LUF/LEVI/SA) BP Diastolic 2018-04-09 12:27:00 67 mm[Hg] [facility] (LUF/LEVI/SA) Height 2018-04-09 12:27:[address] [facility] (F/LEVI/SA) Weight Measured 2018-04-09 12:27:[address] [facility] (LUF/LEVI/SA) BMI (Body Mass Index) 2018-04-09 12:27:00 29.9 [facility] (F/LEVI/SA) Procedures Procedure Date / Time Performed Performing Clinician [facility] e CT SPINE CERVICAL WITH IV CONTRAST 2020-01-13 10:23:00 Gold Romero [facility] FL MYELOGRAM CERVICAL 2020-01-13 08:49:00 Santana Romero [facility] Encounters Start Date/Time End Date/Time [facility] ID Source 2019-12-18 12:09:00 2019-12-18 14:15:00 Departed Emergency Room 1 AYAH DORAN [facility] [id number] [facility] 2019-07-28 09:06:20 2019-07-28 11:33:00 Office Visit Santana Majano [facility] [id number] 2019-02-07 17:30:00 2019-02-07 20:43:00 Departed Emergency Room 1 XIOMARAJASON [facility] [id number] [facility] 2018-04-09 12:00:00 2018-04-09 16:00:00 STRN [facility] TENDON NECK MENA ROSE [facility], [address] [place] [address] [facility] [id number] [facility] (LUF /LEVI/SA) Results Test Description Test Time Test Comments Results Result Comments Source CT, SPINE, CERVICAL, WITH IV CONTRAST 2020-01-13 14:03:00 FINAL REPORT EXAMINATION: CT Myelogram of the cervical spine HISTORY: Bilateral upper extremity paresthesias and numbness. Status post ACDF.COMPARISON:Cervical myelogram, same date.TECHNIQUE: Multidetector helical axial images were obtained from the foramen magnum to T1 following myelography . The images were reconstructed using bone and soft tissue algorithms and were viewed in axial, sagittal and coronal planes. For details of the injection procedure, see the report of the myelogram.Dose modulation, iterative reconstruction, and/or weight based adjustment of the mA/kV was utilized to reduce the radiation dose to as low as reasonably achievable. Intrathecal contrast:Please refer to fluoroscopic myelogram report for detail. FINDINGS:Curvature: Straightening of normal lordosis.Vertebrae: Prior anterior cervical discectomy and fusion from C4 through C6. There is no lucency surrounding the hardware or hardware fracture. No evidence of neoplasm, infection, or fracture.Soft tissues: Unremarkable. Spinal canal caliber: Developmentally normal. Degenerative changes:C1-C2: Unremarkable. C2-C3: Mild left neural foraminal narrowing due to uncovertebral and facet arthropathy. No right foraminal or canal stenosis. C3-C4: Diffuse disc osteophyte complex and bilateral uncovertebral and facet arthropathy result in mild bilateral neural foraminal narrowing. No canal stenosis. C4-C5: Moderate right and mild left neural foraminal narrowing due to uncovertebral and facet arthropathy. Small central disc osteophyte protrusion. No canal stenosis. C5-C6: Asymmetric to the left disc osteophyte complex and bilateral uncovertebral arthropathy result in mild right and severe left neural foraminal narrowing. No canal stenosis. C6-C7: Moderate right and mild left neural foraminal narrowing due to diffuse disc osteophyte complex and uncovertebral and facet arthropathy. No canal stenosis. C7-T1: Unremarkable. IMPRESSION:1.Degenerative changes from C2-C3 through C6-C7 with moderate right neural foraminal narrowing at C4-C5 and C6-C7 and severe left foraminal narrowing at C5-C6.2.No canal stenosis.3.Prior anterior cervical discectomy and fusion from C4 through C6. No hardware failure. Signed: Kasie Poole MDReport Verified Date/Time: 01/13/2020 14:03:03 Reading Location: [facility] Room [address] [place] [address] Spine Cervical with IV Contrast 2020-01-13 14:03:00 Interface, External Ris In - 01/13/2020 2:05 PM CSTFINAL REPORT EXAMINATION: CT Myelogram of the cervical spine HISTORY: Bilateral upper extremity paresthesias and numbness. Status post ACDF.COMPARISON:Cervical myelogram, same date.TECHNIQUE: Multidetector helical axial images were obtained from the foramen magnum to T1 following myelography . The images were reconstructed us ing bone and soft tissue algorithms and were viewed in axial, sagittal and coronal planes. For details of the injection procedure, see the report of the myelogram.Dose modulation, iterative reconstruction, and/or weight based adjustment of the mA/kV was utilized to reduce the radiation dose to as low as reasonably achievable. Intrathecal contrast:Please refer to fluoroscopic myelogram report for detail. FINDINGS:Curvature: Straightening of normal lordosis.Vertebrae: Prior anterior cervical discectomy and fusion from C4 through C6. There is no lucency surrounding the hardware or hardware fracture. No evidence of neoplasm, infection, or fracture.Soft tissues: Unremarkable. Spinal canal caliber: Developmentally normal. Degenerative changes:C1-C2: Unremarkable. C2-C3: Mild left neural foraminal narrowing due to uncovertebral and facet arthropathy. No right foraminal or canal stenosis. C3-C4: Diffuse disc osteophyte complex and bilateral uncovertebral and facet arthropathy result in mild bilateral neural foraminal narrowing. No canal stenosis. C4-C5: Moderate right and mild left neural foraminal narrowing due to uncovertebral and facet arthropathy. Small central disc osteophyte protrusion. No canal stenosis. C5-C6: Asymmetric to the left disc osteophyte complex and bilateral uncovertebral arthropathy result in mild right and severe left neural foraminal narrowing. No canal stenosis. C6-C7: Moderate right and mild left neural foraminal narrowing due to diffuse disc osteophyte complex and uncovertebral and facet arthropathy. No canal stenosis. C7-T1: Unremarkable. IMPRESSION:1.Degenerative changes from C2-C3 through C6-C7 with moderate right neural foraminal narrowing at C4-C5 and C6-C7 and severe left foraminal narrowing at C5-C6.2.No canal stenosis.3.Prior anterior cervical discectomy and fusion from C4 through C6. No hardware failure. Signed: Kasie Pooleort Verified Date/Time: 01/13/2020 14:03:03 Reading Location: [facility] Reading Room [address] [place] [address] [facility], MYELOGRAM, CERVICAL 2020-01-13 10:46:00 Reason for Exam: ->r20.9 z98.1 m50.30 FINAL REPORT Exam ination: Fluoroscopic guided lumbar puncture for cervical myelographic imaging Clinical indication: Upper extremity paresthesias and numbness. Status post ACDF. Physician: Dr. Kasie Poole Anesthesia: None. Medications:1% lidocaine and bicarbonate. Exposure/ DAP: 1589.80 mGy-am2Mkvkir time: 00:00:22 Procedure: Informed consent was obtained from the patient following delineation of the risks, benefits, and alternatives to the procedure. Patient was then taken to the fluoroscopy suite and placed prone on the table. Preliminary imaging of the lumbosacral spine was performed. The patient's back was marked, prepped and draped in the usual sterile fashion. After administration of local anesthesia, a 22-gauge spinal needle was advanced to the midline of the L5-S1 level utilizing image guidance. Once needle location was confirmed, 12 mL of Isovue 300M was instilled intrathecally. The needle was removed and sterile bandage was applied. The patient tolerated the procedure well. Additional neutral, flexion, extension and weight bearing views were performed. The patient was then taken to the CT suite for further imaging. Patient was discharged home after two hours nurse monitoring. Impression: Fluoroscopic-guided lumbar puncture with successful intrathecal administration of contrast for cervical myelographic imaging. Signed: Kasie Poole Verified Date/Time: 01/13/2020 10:46:08 Reading Location: [facility] Reading Room [address] [place] [address] myelogram cervical 2020-01-13 10:46:00 Interf holly, External Ris In - 01/13/2020 10:48 AM CSTFINAL REPORT Examination: Fluoroscopic guided lumbar puncture for cervical myelographic imaging Clinical indication: Upper extremity paresthesias and numbness. Status post ACDF. Physician: Dr. Kasie Poole Anesthesia: None. Medications:1% lidocaine and bicarbonate. Exposure/ DAP: 1589.80 mGy-zu1Smitlo time: 00:00:22 Procedure: Informed consent was obtained from the patient following delineation of the risks, benefits, and alternatives to the procedure. Patient was then taken to the fluoroscopy suite and placed prone on the table. Preliminary imaging of the lumbosacral spine was performed. The patient's back was marked, prepped and draped in the usual sterile fashion. After administration of local anesthesia, a 22-gauge spinal needle was advanced to the midline of the L5-S1 level utilizing image guidance. Once needle location was confirmed, 12 mL of Isovue 300M was instilled intrathecally. The needle was removed and sterile bandage was applied. The patient tolerated the procedure well. Additional neutral, flexion, extension and weight bearing views were performed. The patient was then taken to the CT suite for further imaging. Patient was discharged home after two hours nurse monitoring. Impression: Fluoroscopic-guided lumbar puncture with successful intrathecal administration of contrast for cervical myelographic imaging. Signed: Kasie Poole MDReport Verified Date/Time: 01/13/2020 10:46:08 Reading Location: [facility] Reading Room [facility] B01.626 [facility] CXR 2 VIEW - HOPD 2019-12-18 13:51:00 [place] [address] Patient Name: LINDA BAIRES MR #: [id number] : 1945 Age/Sex: 74/F Req #: [id number] Adm Physician: Ordered by: AYAH DORAN MD Report #: [id number] Location: [facility] Room/Bed: Procedure: [id number] HOPD/CXR 2 VIEW - HOPD Exam Date: 12/18/19 Exam Time: 1301 REPORT STATUS: Signed Clinical History: cough Comparison Study: None Findings: The heart and lungs are within normal limits. The pleural spaces are clear. There is no pneumothorax. Degenerative changes abnormalities are seen. Impression: No active cardiopulmonary disease. Signed by: Keron Scott MD on 12/18/2019 1:51 PM Dictated By: KERON SCOTT MD 1351 Transcribed By: CORNELIUS on 12/18/19 1351 COPY TO: AYAH DORAN MD TISSUE EXAM 2019-05-08 16:27:00 Surgical Pat hology Report Case: [id number] Authorizing Provider: Santana Romero MD Collected: 05/02/2019 1200 Ord ering Location: [facility] PERIOPERATIVE Received: 05/02/2019 1333 SERVICES Pathologist: Luigi Santillan MD Specimen: Spine, Cervical, DISC C4-C6 VERTEBRAL COLUMN, INTERVERTEBRAL DISC, C4-6, DISCECTOMY:FRAGMENTS OF FIBROCARTILAGE WITH MILD DEGENERATIVE CHANGESSMALL FRAGMENTS OF BONE Signing Pathologist Direct Phone Line: [phone] signed by Luigi Kendall MD on 05/08/2019 at 4:27 [id number]; [id number], cervical disc L4- P3Ouxoisfs in formalin labeled with the patient's name, accession number and "spine, cervical" is 2.0 x 1.0 x 0.3 cm aggregate of multiple, irregular wolfe- white fibrocartilaginous tissue. The specimen is entirely submitted in A1, following decalcification. CG/pl Performed SHORT-LATENCY SPE, ALL LIMBS 2019-05-05 16:53:00 Reason for exam:->cervical spondylitis,myelopathy INTRAOPERATIVE MONITORING REPORT Kulwinder weaver name: Linda Baires [facility] [place], [place] Surgery Date: 05/02/19 [place] Pro: [id number] Monitoring began at 0922 and ended at 1155 Surgeon: Santana Romero M.D. Examining Neurologist: Cyn Cardenas M.D. Monitoring Technologist: ASA Darby Procedure: ACDF C4-6 Stimulation Parameters: Ulnar nerves individually stimulated at the wrist Rate 4.7Hz, Intensity 35mA, Duration 0.3ms Posterior Tibial nerves individually stimulated at the ankle Rate 4.7Hz, Intensity 70mA, Duration 0.3ms Filters 30-500Hz, Notch Off Recording Parameters: EP1, EP2, CPz, CP3, CP4, C5, and FPz Free-running EEG recorded with bipolar derivation, using modified International 10/20 placements: C3-FPZ, C4-FPZ Description: Intraoperative neurophysiological monitoring was performed using a combination of upper and lower extremity somatosensory evoked potentials and free-running EEG. A real-time connection with the examining neurologist was established and maintained throughout the operative procedure by the monitoring technologist. Upper extremity somatosensory evoked potentials were recorded centrally at the cervical and cortical levels following ulnar nerve stimulation. Lower extremity somatosensory evoked potentials were recorded centrally at the cervical and cortical levels following posterior tibial nerve stimulation. SSEPs were present and reproducible in all extremities at baselines. All SSEP responses were stable with baselines throughout the case and at closing. Surgeon aware of all responses in real time throughout the case and at closing. Free-running EEG remained symmetrical throughout the procedure with no focal changes noted to occur. Conclusion: These results suggest the absence of untoward, secondary effects on the posterior column function as a consequence of this surgical procedure. Cyn Cardenas M.D.M50.03 -GLUCOSE METER 2019-05-03 12:12:00 Test Item POC-GLUCOSE METER (BEAKER) (test code = 1538) 222 mg/dL 70-110 H TESTED AT [facility] [address] [facility] [address] CBC W/PLT COUNT & AUTO [id number] 08:44:00* Test Item Value Reference Range Interpretation Comments WHITE BLOOD CELL COUNT (BEAKER) (test code = 775) 11.9 K/ L 3.5- 10.5 H RED BLOOD CELL COUNT (BEAKER) (test code = 761) 3.94 M/ L 3.93-5 .22 HEMOGLOBIN (BEAKER) (test code = 410) 11.5 GM/DL 11.2-15.7 HEMATOCRIT (BEAKER) (test code = 411) 36.1 % 34.1-44.9 MEAN CORPUSCULAR VOLUME (BEAKER) (test code = 753) 91.6 fL 79. 4-94.8 MEAN CORPUSCULAR HEMOGLOBIN (BEAKER) (test code = 751) 29.2 pg 25.6-32.2 MEAN CORPUSCULAR HEMOGLOBIN CONC (BEAKER) (test code = 752) 31.9 GM/DL 32.2-35.5 L RED CELL DISTRIBUTION WIDTH (BEAKER) (test code = 412) 13.2 % 11.7-14.4 PLATELET COUNT (BEAKER) (test code = 756) 155 K/CU MM 150-450 MEAN PLATELET VOLUME (BEAKER) (test code = 754) 11.4 fL 9.4-12 .3 NUCLEATED RED BLOOD CELLS (BEAKER) (test code = 413) 0 /100 WBC 0 -0 NEUTROPHILS RELATIVE PERCENT (BEAKER) (test code = 429) 90 % LYMPHOCYTES RELATIVE PERCENT (BEAKER) (test code = 430) 7 % MONOCYTES RELATIVE PERCENT (BEAKER) (test code = 431) 2 % EOSINOPHILS RELATIVE PERCENT (BEAKER) (test code = 432) 0 % BASOPHILS RELATIVE PERCENT (BEAKER) (test code = 437) 0 % NEUTROPHILS ABSOLUTE COUNT (BEAKER) (test code = 670) 10.73 K/ L 1.56-6.13 H LYMPHOCYTES ABSOLUTE COUNT (BEAKER) (test code = 414) 0.81 K/ L 1.18-3.74 L MONOCYTES ABSOLUTE COUNT (BEAKER) (test code = 415) 0.25 K/ L 0. 24-0.36 EOSINOPHILS ABSOLUTE COUNT (BEAKER) (test code = 416) 0.00 K/ L 0.04-0.36 L BASOPHILS ABSOLUTE COUNT (BEAKER) (test code = 417) 0.03 K/ L 0. 01-0.08 IMMATURE GRANULOCYTES-RELATIVE PERCENT (BEAKER) (test code = 2801) 1 % 0-1 [id number] 05:10:00* Test Item Value Reference Range Interpretation Comments MAGNESIUM (BEAKER) (test code = 627) 2.0 mg/dL 1.6-2.6 BASIC METABOLIC [id number] 05:10:00* Test Item Value Reference Range Interpretation Comments SODIUM (BEAKER) (test code = 381) 140 meq/L 136-145 POTASSIUM (BEAKER) (test code = 379) 4.6 meq/L 3.5-5.1 CHLORIDE (BEAKER) (test code = 382) 112 meq/L 98-107 H CO2 (BEAKER) (test code = 355) 22 meq/L 22-29 BLOOD UREA NITROGEN (BEAKER) (test code = 354) 12 mg/dL 7-21 CREATININE (BEAKER) (test code = 358) 1.19 mg/dL 0.57-1.25 GLUCOSE RANDOM (BEAKER) (test code = 652) 193 mg/dL 70-105 H CALCIUM (BEAKER) (test code = 697) 9.0 mg/dL 8.4-10.2 EGFR (BEAKER) (test code = 1092) 44 mL/min/1.73 sq m ESTIMATED GFR IS NOT ACCURATE CREATININE CLEARANCE IN PREDICTING GLOMERULAR FILTRATION RATE. ESTIMATED GFR IS NOT APPLICABLE FOR DIALYSIS PATIENTS. B-TYPE NATRIURETIC FACTOR (BNP)2019-05-02 19:05:00* Test Item Value Reference Range Interpretation Comments B-TYPE NATRIURETIC PEPTIDE (BEAKER) (test code = 700) 272 pg/mL 0-100 H [id number] 18:59:00* Test Item Value Reference Range Interpretation Comments MAGNESIUM (BEAKER) (test code = 627) 1.9 mg/dL 1.6-2.6 BASIC METABOLIC [id number] 18:59:00* Test Item Value Reference Range Interpretation Comments SODIUM (BEAKER) (test code = 381) 138 meq/L 136-145 POTASSIUM (BEAKER) (test code = 379) 4.8 meq/L 3.5-5.1 CHLORIDE (BEAKER) (test code = 382) 110 meq/L 98-107 H CO2 (BEAKER) (test code = 355) 19 meq/L 22-29 L BLOOD UREA NITROGEN (BEAKER) (test code = 354) 12 mg/dL 7-21 CREATININE (BEAKER) (test code = 358) 1.13 mg/dL 0.57-1.25 GLUCOSE RANDOM (BEAKER) (test code = 652) 211 mg/dL 70-105 H CALCIUM (BEAKER) (test code = 697) 8.8 mg/dL 8.4-10.2 EGFR (BEAKER) (test code = 1092) 47 mL/min/1.73 sq m ESTIMATED GFR IS NOT ACCURATE CREATININE CLEARANCE IN PREDICTING GLOMERULAR FILTRATION RATE. ESTIMATED GFR IS NOT APPLICABLE FOR DIALYSIS PATIENTS. RAD, CHEST, 1 VIEW, NON [id number] 18:28:00Reason for exam:->afib, post opShould this be performed at the bedside?->YesFINAL REPORT Chest. HISTORY: Atrial fibrillation, postoperative. COMPARISON STUDY: None available. FINDINGS: The cardiac size is enlarged. Some atelectasis or fibrosis is seen in the left mid to lower lung field. No pleural effusion or pneumothorax is seen. Degenerative changes are noted. Postsurgical changes in the cervical spine. IMPRESSION: Linear opacities in the left mid to lower lung field, most likely atelectasis or fibrosis. In the right clinical setting, a superimposed infection would be difficult to exclude. Clinical correlation and short term imaging follow-up could be made to exclude other etiologies. Signed: Keron Scotteport Verified Date/Time: 05/02/2019 18:28:18 Reading Location: [facility] C013W Consult Reading Room W/PLT COUNT & AUTO DIFFERENTIAL 2019-05-02 18:19:00* Test Item Value Reference Range Interpretation Comments WHITE BLOOD CELL COUNT (BEAKER) (test code = 775) 11.3 K/ L 3.5- 10.5 H RED BLOOD CELL COUNT (BEAKER) (test code = 761) 4.21 M/ L 3.93-5 .22 HEMOGLOBIN (BEAKER) (test code = 410) 12.6 GM/DL 11.2-15.7 HEMATOCRIT (BEAKER) (test code = 411) 38.7 % 34.1-44.9 MEAN CORPUSCULAR VOLUME (BEAKER) (test code = 753) 91.9 fL 79. 4-94.8 MEAN CORPUSCULAR HEMOGLOBIN (BEAKER) (test code = 751) 29.9 pg 25.6-32.2 MEAN CORPUSCULAR HEMOGLOBIN CONC (BEAKER) (test code = 752) 32.6 GM/DL 32.2-35.5 RED CELL DISTRIBUTION WIDTH (BEAKER) (test code = 412) 13.3 % 11.7-14.4 PLATELET COUNT (BEAKER) (test code = 756) 165 K/CU MM 150-450 MEAN PLATELET VOLUME (BEAKER) (test code = 754) 10.8 fL 9.4-12 .3 NUCLEATED RED BLOOD CELLS (BEAKER) (test code = 413) 0 /100 WBC 0 -0 NEUTROPHILS RELATIVE PERCENT (BEAKER) (test code = 429) 92 % LYMPHOCYTES RELATIVE PERCENT (BEAKER) (test code = 430) 6 % MONOCYTES RELATIVE PERCENT (BEAKER) (test code = 431) 1 % EOSINOPHILS RELATIVE PERCENT (BEAKER) (test code = 432) 0 % BASOPHILS RELATIVE PERCENT (BEAKER) (test code = 437) 0 % NEUTROPHILS ABSOLUTE COUNT (BEAKER) (test code = 670) 10.37 K/ L 1.56-6.13 H LYMPHOCYTES ABSOLUTE COUNT (BEAKER) (test code = 414) 0.70 K/ L 1.18-3.74 L MONOCYTES ABSOLUTE COUNT (BEAKER) (test code = 415) 0.15 K/ L 0. 24-0.36 L EOSINOPHILS ABSOLUTE COUNT (BEAKER) (test code = 416) 0.01 K/ L 0.04-0.36 L BASOPHILS ABSOLUTE COUNT (BEAKER) (test code = 417) 0.03 K/ L 0. 01-0.08 IMMATURE GRANULOCYTES-RELATIVE PERCENT (BEAKER) (test code = 2801) 1 % 0-1 POCT-GLUCOSE [id number] 17:32:00* Test Item Value Reference Range Interpretation Comments POC-GLUCOSE METER (BEAKER) (test code = 1538) 199 mg/dL 70-110 H TESTED AT [facility] [address] [facility] [address] POCT-GLUCOSE [id number] 12:45:00* Test Item Value Reference Range Interpretation Comments POC-GLUCOSE METER (BEAKER) (test code = 1538) 171 mg/dL 70-110 H TESTED AT [facility] [address] [facility] [facility] [address] [place], [employer] CLE[employer]ER IN OR/30 MINUTE [id number] 12:23:00Reason for exam:-> CERVIVAL SPONDYLITIS, MYE;OPATHYFINAL REPORT TECHNIQUE: Fluoroscopic images from cervical spine discectomy and fusion procedure. INDICATION: 72-year-old woman with cervical spondylitis and myelopathy. COMPARISON: Cervical spine radiographs from earlier same date. IMPRESSION:Fluoroscopic images from cervical spine discectomy and fusion procedure, not obtained by the undersigned. Please refer to operative note for more details of the procedure and findings. Fluoroscopy time: 5.4 secondsNumber of images: 3 Signed: Perez Dianaort Verified Date/Time: 05/02/2019 12:23:22 Reading Location: [address] Consult Reading Room , ASSEM[employer] CLEANER IN OR/30 MINUTE [id number] 11:00:00Reason for exam:->cervical spondylitis, myelopathyFINAL REPORT TECHNIQUE: Lateral intraoperative view of the cervical spine. INDICATION: 72-year-old woman with cervical spondylitis and myelopathy. COMPARISON: None. IMPRESSION:Localization instrument projects over the C4 vertebral body. Signed: Perez Diana Verified Date/Time: 05/02/2019 11:00:28 Reading Location: [facility] Radiology Reading Room -GLUCOSE [id number] 08:45:00* Test Item Value Reference Range Interpretation Comments POC-GLUCOSE METER (BEAKER) (test code = 1538) 180 mg/dL 70-110 H TESTED AT [facility] [address] [facility] [address] PROTHROMBIN TIME/[id number] 08:29:00* Test Item Value Reference Range Interpretation Comments PROTIME (BEAKER) (test code = 759) 13.2 seconds 11.9-14.2 INR (BEAKER) (test code = 370) 1.1 <=5.9 Effective 04/16/2019: PT Reference Range ChangeNew: 11.9-14.2 Previous: 11.7-14. 7RECOMMENDED COUMADIN/WARFARIN INR THERAPY RANGESSTANDARD DOSE: 2.0-3.0 Include s: PROPHYLAXIS for venous thrombosis, systemic embolization; TREATMENT for venou s thrombosis and/or pulmonary embolus.HIGH RISK: Target INR is 2.5-3.5 for patie nts wiht mechanical heart valves.US LOW EXT VEINS LIMITED [id number] 12:00:00 [place] [address] Patient Name: LINDA BAIRES MR #: [id number] : [birth year] Age/Sex: 73/F Req #: [id number] Adm Physician: Ordered by: JASON SOLANO MD Report #: [id number] Location: [facility] Room/Bed: Procedure: [id number] H OPD/US LOW EXT VEINS LIMITED UNI Exam Date: 02/07/19 Exam Time: 1999 REPORT STATUS: Sig [place] EXAM: Unilateral Lower Extremity Venous Duplex Ultrasound INDICATION: Leg pain and swelling [id number] COMPARISON: None TECHNIQ UE: Wolfe scale, color Doppler and spectral waveform analysis of the right lowe r extremity deep venous system was performed. FINDINGS: Common Femoral: Fully compressible with normal spontaneous waveforms. Proximal Gr eater Saphenous: Fully compressible. Femoral: Fully sally sible with normal spontaneous waveforms. Normal response to augmentation. Proximal Deep Femoral: Normal spontaneous waveforms. Popliteal: Fully compressible with normal spontaneous waveforms. IMPRESSI ON: No evidence of deep venous thrombosis above the right calf. Sig [place] by: Dr. Yani Doherty MD on 02/08/2019 12:02 PM Dictated By: AFRICA DOHERTY MD 120 2 Transcribed By: CORNELIUS on 02/08/19 1202 COPY TO: JASON SOLANO MD [id number] 14:41:00* Test Item Value Reference Range Interpretation Comments CPK (test code = CPK) 41 U/L 30-135 REPEAT [id number] 14:41:00* Test Item Value Reference Range Interpretation Comments CKMB (test code = CKMB) 0.78 ng/ml 0.00-2.37 REPEAT 90MINUTESTROPONIN-I [id number] 14:41:00* Test Item Value Reference Range Interpretation Comments Troponin-I (test code = TROP) 0.019 ng/ml 0.000-0.034 The 99th Percentile URL is 0.034 ng/mL. The Joint Society of Cardiology/[place] [employer] (ESC/ACC) and the National [...] clinical event. REPEAT 90MINUTESXR CHEST 2 PA [id number] 13:59:70ZZ6Tisrvpvwz: XR CHEST 2 PA LATERALOrder Date: 04/09/2018 12:20 PMOrdering Provider: AUSTIN Huberinical Indication: CHEST PAINComparison: NoneFindings:The lungs are clear and well-aerated. No pleural effusion or pneumothorax.Cardiac silhouette is normal in size.Impression:No acute pulmonary process.This final report was electronically signed by Dr Meenu Loaiza MD 04/09/20181:52 PMDictated By: Bobbi LOAIZAte: 04/09/2018 13:59TROPONIN-I [id number] 13:24:00* Test Item Value Reference Range Interpretation Comments Troponin-I (test code = TROP) 0.022 ng/ml 0.000-0.034 The 99th Percentile URL is 0.034 ng/mL. The Joint Society of Cardiology/[place] [employer] (ESC/ACC) and the National [...] first 24 hours after the clinical event. [id number] 13:24:00* Test Item Value Reference Range Interpretation Comments CPK (test code = CPK) 43 U/L 30-135 [id number] 13:24:00* Test Item Value Reference Range Interpretation Comments CKMB (test code = CKMB) 0.84 ng/ml 0.00-2.37 FE1HBSHPVPBL, [id number] 13:24:00* Test Item Value Reference Range Interpretation Comments Myoglobin (test code = FABRICIO) 67.2 ng/ml 0.0-61.5 HH ER9 Critical values were called to Sandie Funez in ER by [id number] on 13:24 PM. Results were read back by Sandie Funez in ER. PRO-BNP(B-Type Natriuretic Peptide)2018-04-09 13:24:00* Test Item Value Reference Range Interpretation Comments Pro-BNP(B-Peptide) (test code = PROBNP) 2160 pg/ml 0-125 H THE METHODOLOGY FOR DETECTION OF B-NATRIURETIC PEPTIDE HAS BEEN CHANGED TO "NT pro-BNP". THE NORMAL RANGES HAVE CHANGED. PLEASE NOTE THAT RANGES ARE DEFINED BY THE AGE OF THE PATIENT. (<75 years old = 0-125 pg/ml 75years and older = 0-450pg/ml). VALUES ARE NOT INTERCHANGEABLE BETWEEN METHODS. 11-26-2006 [id number] 13:03:00* Test Item Value Reference Range Interpretation Comments Glucose (test code = GLU) 156 mg/dl 75-110 H BUN (test code = BUN) 23.0 mg/dl 6.0-17.0 H Creatinine (test code = CREA) 1.6 mg/dl 0.4-1.2 H Sodium (test code = NA) 150 mmol/l 137-145 H Potassium (test code = K) 4.3 mmol/l 3.5-5.0 Chloride (test code = CL) 109 mmol/l 98-107 H CO2 (test code = CO2) 24 mmol/l 22-30 Calcium (test code = CALC) 9.0 mg/dl 8.4-10.2 T Protein (test code = TP) 6.8 gm/dl 5.1-8.7 Albumin (test code = ALB) 4.2 gm/dl 3.5-4.6 A/G Ratio (test code = AGRAT) 1.6 % 1.1-2.2 AST (SGOT) (test code = AST) 21 U/L 11-36 ALT (SGPT) (test code = ALT) 22 U/L 11-40 Alkaline Phos (test code = ALKP) 38 U/L 47-114 L Total Bilirubin (test code = TBIL) 0.7 mg/dl 0.2-1.2 Globulin (test code = GLOBU) 2.6 gm/dl 2.3-3.5 Calcium, Corrected (test code = CALCCORR) 8.8 mg/dl 8.4-10.2 Various formulas exist for corrected serum calcium results, each yielding different values. This corrected result was based on the formula: Corrected Calcium = SerumCalcium + [0.8 * ( 4 - SerumAlbumin)] EGFR if (test code = EGFRAA) 41 mL/min/1.73m\\S\\2 EGFR if Non- (test code = EGFRNA) 34 mL/min/1.73m\\S \\2 Estimated Glomerular Filtration Rate (eGFR) Reference Intervals Decision Points for 18 years and older and average body mass: >= 60 Does not exclude kidney disease. 30 - 59 Suggests moderate chronic kidney disease and indicates the need for further investigation including assessment of proteinuria and cardiovascular factors. < 30 Usually indicates a need for referral for assessment and management of chronic kidney failure. ER9PT AND [id number] 12:59:00* Test Item Value Reference Range Interpretation Comments Protime (test code = PT) 15.4 seconds 9.0-11.9 H INR (test code = INR) 1.5 0.9-1.1 H INR re sults are intended ONLY to monitor Oral Anticoagulant therapy in stablized patients. The INR Therapeutic Range is 2.0 - 3.0 Patients with a mechanical heart, the INR Range is 2.5 - 3.5 [id number] 12:59:00* Test Item Value Reference Range Interpretation Comments aPTT (test code = PTT) 25.1 seconds 23.0-33.0 ER9CBC WITH AUTO [id number] 12:50:00* Test Item Value Reference Range Interpretation Comments WBC (test code = WBC) 9.95 10\\S\\3/ul 4.80-10.80 RBC (test code = RBC) 4.16 10\\S\\6/ul 4.20-5.40 L Hemoglobin (test code = HGB) 12.5 gm/dl 12.0-14.0 Hematocrit (test code = HCT) 39.1 % 37.0-47.0 MCV (test code = MCV) 94.0 fL 81.0-99.0 MCH (test code = MCH) 30.0 pg 27.0-31.0 MCHC (test code = MCHC) 32.0 gm/dl 33.0-37.0 L RDW (test code = RDWVC) 13.2 % 11.5-14.5 Platelet (test code = PLT) 191 10\\S\\3/ul 130-400 MPV (test code = MPV) 11.3 fL 7.4-10.4 A "NOT M EASURED" RESULTS ARE DISPLAYED WHEN THE INSTRUMENT HAS [...] BE NOTED ON THE REPORT. NE% (test code = NE) 76.8 % 42.0-75.0 H LY% (test code = LY) 13.6 % 13.0-42.0 MO% (test code = MO) 7.5 % 4.0-14.0 EO% (test code = EO) 0.9 % 1.0-3.0 L BA% (test code = BA) 0.6 % 1.0-3.0 L IG% (test code = IG%) 0.6 % 0.0-0.4 H ER9
--- OUTSIDE RECORDS SUMMARY | 2020-06-21 12:37 | XMS REPORT | Clinical Summary ---
Author Author [facility] Address Unknown Phone Unavailable Care Team Providers Care Local Area Network Systems Adminstrator Name Role Phone Demarcus Cho MD PCP Unavailable Allergies Comments Active Allergy Reactions Severity Noted Date Losartan Potassium Itching 12/09/2018 Face turned red and warm along with itching Methylprednisolone Itching, Rash Medium 08/07/2016 Medications End Date Status Medication Sig Dispensed Refills Start Date Active simvastatin (ZOCOR) 20 MG Take 20 mg by 0 tablet mouth nightly. Active atenolol (TENORMIN) 50 MG Take 50 mg by 0 tablet mouth daily. Active olopatadine (PATANOL) 0.1 Place 1 drop 0 % ophthalmic solution into both eyes 2 (two) times daily. Active aspirin 81 MG EC tablet Take 81 mg by 0 mouth daily. Active cholecalciferol, vitamin Take 2,000 mg 0 D3, 2,000 unit Cap by mouth daily. Active warfarin (COUMADIN) 5 MG Take 2.5 mg 0 tablet by mouth daily . Active gabapentin (NEURONTIN) Take 300 mg 0 300 MG capsule by mouth 3 (three) times daily. Active traMADol (ULTRAM) 50 mg Take 50 mg by 0 tablet mouth every 6 (six) hours as needed for Pain. Active lisinopril Take 2.5 mg 0 (PRINIVIL,ZESTRIL) 2.5 MG by mouth tablet daily. Active enoxaparin (LOVENOX) 80 Inject 1 0 04/22/ 201 mg/0.8 mL Syrg syringe into 9 the skin twice a day as instructed by the coumadin clinic Active glimepiride (AMARYL) 1 MG Take 1 mg by 0 09/20 0/201 tablet mouth. 9 Active furosemide (LASIX) 40 MG Take 40 mg by 0 07/10 tablet mouth. 9 Active fexofenadine (FAUSTO) Take 180 mg 0 01 180 MG tablet by mouth. 9 Active amLODIPine (NORVASC) 10 Take 10 mg by 0 MG tablet mouth. 9 01/13/2020 Discontinued metFORMIN (GLUCOPHAGE) Take 500 mg 0 500 MG tablet by mouth 2 (two) times daily with breakfast and dinner. Active Problems Problem Noted Date Cervical myelopathy 05/02/2019 Cervical spondylitis 05/02/2019 Renal mass, left 12/10/2014 Abdominal pain of unknown etiology 10/29/2014 Renal cell carcinoma 10/29/2014 PAF (paroxysmal atrial fibrillation), CHADS 2 Score = 2 (HTN+ DM) 10/28/2014 Normal cardiac stress test, [...] breathing 10/26/2014 GERD (gastroesophageal reflux disease) 10/26/2014 Encounters Care Team Description Date Type Specialty Santana Ribera MD [address], [facility] [address] Room Paresthesias/numbness; S/P cervical spinal fusion; DDD (degenerative disc disease), cervical 01/13/2020 Hospital Computed Tomography Encounter Santana Ribera MD Paresthesias/numbness; S/P cervical spinal fusion; DDD (degenerative disc disease), cervical 01/13/2020 Hospital Radiology Encounter Santana Ribera MD Canceled (Patient) 12/25/2019 Hospital Radiology Encounter Santana Ribera MD Paresthesias/numbness (Primary Dx); S/P cervical spinal fusion; DDD (degenerative disc disease), cervical 12/20/2019 Outside Orders Central Scheduling after 06/21/2019 Social History Date Tobacco Use Types Packs/Day Years Used Never Smoker Smokeless Tobacco: Never Used Alcohol Use Drinks/Week oz/Week Comments No Sex Assigned at Date Recorded Not on file Industry Job Start Date Occupation Not on file Not on file Not on file Travel End Travel History Travel Start No recent travel history available. Last Filed Vital Signs Time Taken Vital Sign Reading 01/13/2020 9:45 AM INFORMATION ASSURANCE ANALYST Blood Pressure 116/81 01/13/2020 9:45 AM INFORMATION ASSURANCE ANALYST Pulse 69 01/13/2020 8:40 AM INFORMATION ASSURANCE ANALYST Temperature 36.8 C (98.3 F) 01/13/2020 9:45 AM INFORMATION ASSURANCE ANALYST Respiratory Rate 20 01/13/2020 9:45 AM INFORMATION ASSURANCE ANALYST Oxygen Saturation 98% - Inhaled Oxygen - Concentration - Weight - - Height - - Body Mass Index - Plan of Treatment Not on file Implants Device Identifier Shelf Expiration Date Model / Serial / L ot Implanted Type Area Manufactur er [id number] / / Plt Ant Cerv Aviator 26mm Lev2 IMPLANTS N/A: Spine DMITRIY:ST [id number] - [id number] Cervical RUBIO Implanted: Qty: 1 on 05/02/2019 by Santana Nunes MD [id number] / / Scr Martina Ang Self Drl 4.0x14mm IMPLANTS N/A: Spine DMITRIY:ST [id number] - [id number] Cervical RUBIO Implanted: Qty: 6 on 05/02/2019 by Santana Nunes MD 04/19/2016 [id number] / / [id number] Stent,Uret F/G Contour Injeciton Uro Stent Right: Ureter [place] 6.0/26 - [id number] SCIENTIFIC Implanted: Qty: 1 on 12/10/2014 by Moise Lucero MD 09/15/2020 [id number] / / [id number] Bimodal N/A: Spine DMITRIY Implanted: Qty: 1 on 05/02/2019 by Santana Bowers MD 10/25/2022 [id number] / / [id number] Tritanium C N/A: Spine DMITRIY Implanted: Qty: 1 on 05/02/2019 by Santana Bowers MD 11/01/2022 [id number] / / [id number] Tritanium C N/A: Spine DMITRIY Implanted: Qty: 1 on 05/02/2019 by Cervical SP Santana Pagan MD Procedures Comments Procedure Name Priority Date/Time Associated Diag nosis CT SPINE CERVICAL WITH IV Routine 01/13/2020 Pare sthesias/numbness CONTRAST 10:23 AM INFORMATION ASSURANCE ANALYST S/P cervical spinal fusion DDD (degenerative disc disease), cervical [place] MYELOGRAM CERVICAL Routine 01/13/2020 Paresthe lobo/numbness 8:49 AM INFORMATION ASSURANCE ANALYST S/P cervical spinal fusion DDD (degenerative disc disease), cervical after 06/21/2019 Results * CT Spine Cervical with IV Contrast (01/13/2020 10:23 AM INFORMATION ASSURANCE ANALYST) Specimen Narrative Performed At FINAL REPORT [facility] EXAMINATION: CT Myelogram of the cervic al spine HISTORY: Bilateral upper extremity pare sthesias and numbness. Status post ACDF. COMPARISON:Cervical myelogram, same saul e. TECHNIQUE: Multidetector helical axial images were obtained from the foramen magnum to T1 following myelogra phy .The images were reconstructed using bone and soft tissu e algorithms and were viewed in axial, sagittal and coronal planes. For details of the injection procedure, see the report of the myelog giuliana. Dose modulation, iterative reconstructi on, and/or weight based adjustment of the mA/kV was utilized to reduce the radiation dose to as low as reasonably achievable. Intrathecal contrast:Please refer to in uoroscopic myelogram report for detail. FINDINGS: Curvature: Straightening of normal lord osis. Vertebrae: Prior anterior cervical disc ectomy and fusion from C4 through C6. There is no lucency surroun ding the hardware or hardware fracture. No evidence of neoplasm, infe ction, or fracture. Soft tissues: Unremarkable. Spinal canal caliber: Developmentally n ormal. Degenerative changes: C1-C2: Unremarkable. C2-C3: Mild left neural foraminal narro wing due to uncovertebral and facet arthropathy. No right foraminal o r canal stenosis. C3-C4: Diffuse disc osteophyte complex and bilateral uncovertebral and facet arthropathy result in mild bi lateral neural foraminal narrowing. No canal stenosis. C4-C5: Moderate right and mild left yuniel ral foraminal narrowing due to uncovertebral and facet arthropathy. Sm all central disc osteophyte protrusion. No canal stenosis. C5-C6: Asymmetric to the left disc oste ophyte complex and bilateral uncovertebral arthropathy result in mil d right and severe left neural foraminal narrowing. No canal stenosis. C6-C7: Moderate right and mild left yuniel ral foraminal narrowing due to diffuse disc osteophyte complex and unc overtebral and facet arthropathy.No canal stenosis. C7-T1: Unremarkable. IMPRESSION: 1.Degenerative changes from C2-C3 throu gh C6-C7 with moderate right neural foraminal narrowing at C4-C5 and C6-C7 and severe left foraminal narrowing at C5-C6. 2.No canal stenosis. 3.Prior anterior cervical discectomy an d fusion from C4 through C6. No hardware failure. Signed: Kasie Poole MD Report Verified Date/Time: 0 14:03:03 Reading Location: [facility] Ro 2 - B01.626 Procedure Note Interface, External Ris In - 01/13/2020 2:05 PM INFORMATION ASSURANCE ANALYST FINAL REPORT EXAMINATION: CT Myelogram of the cervical spine HISTORY: Bilateral upper extremity paresthesias and numbness. Status post ACDF. COMPARISON:Cervical myelogram, same date. TECHNIQUE: Multidetector helical axial images were obtained from the foramen magnum to T1 following myelography . The images were reconstructed using bone and soft tissue algorithms and were viewed in axial, sagittal and coronal planes. For details of the injection procedure, see the report of the myelogram. Dose modulation, iterative reconstruction, and/or weight based adjustment of the mA/kV was utilized to reduce the radiation dose to as low as reasonably achievable. Intrathecal contrast:Please refer to fluoroscopic myelogram report for detail. FINDINGS: Curvature: Straightening of normal lordosis. Vertebrae: Prior anterior cervical discectomy and fusion from C4 through C6. There is no lucency surrounding the hardware or hardware fracture. No evidence of neoplasm, infection, or fracture. Soft tissues: Unremarkable. Spinal canal caliber: Developmentally normal. Degenerative changes: C1-C2: Unremarkable. C2-C3: Mild left neural foraminal narrowing [...] facet arthropathy. No canal stenosis. C7-T1: Unremarkable. IMPRESSION: 1.Degenerative changes from C2-C3 throug h C6-C7 with moderate right neural foraminal narrowing at C4-C5 and C6-C7 and severe left foraminal narrowing at C5-C6. 2.No canal stenosis. 3.Prior anterior cervical discectomy and fusion from C4 through C6. No hardware failure. Signed: Kasie Poole MD Report Verified Date/Time: 01/13/2020 14:03:03 Reading Location: [facility] Reading Room [address] [place] [address] Performing Organization Address City/State/Zipcode Ph one Number [facility] * [place] myelogram cervical (01/13/2020 8:49 AM INFORMATION ASSURANCE ANALYST) Specimen Narrative Performed At FINAL REPORT [facility] Examination: Fluoroscopic guided lumbar puncture for cervical myelographic imaging Clinical indication: Upper extremity pa resthesias and numbness. Status post ACDF. Physician: Dr. Kasie Poole Anesthesia: None. Medications: 1% lidocaine and bicarbonate. Exposure/ DAP:1589.80 mGy-cm2 Flouro time: 00:00:22 Procedure: Informed consent was obtaine d from the patient following delineation of the risks, benefits, and alternatives to the procedure.Patient was then taken to the fluoroscopy suite and placed prone on the table.Prelimina ry imaging of the lumbosacral spine was performed.The patient's b ack was marked, prepped and draped in the usual sterile fashion. After administration of local anesthesia, a 22-gauge spinal needle wa s advanced to the midline of the [id number] utilizing image guid ance.Once needle location was confirmed, 12 mL of Isovue 300M was ins tilled intrathecally. The needle was removed and sterile bandage was applied.The patient tolerated the procedure well.Additi onal neutral, flexion, extension and weight bearing views were performed . The patient was then taken to the CT suite for further imaging. Farrukh velazquez was discharged home after two hours nurse monitoring. Impression: Fluoroscopic-guided lumbar puncture with successful intrathecal administration of contrast for cervical myelographic imaging. Signed: Kasie Poole MD Report Verified Date/Time: 0 10:46:08 Reading Location: [facility] Ro om [address] [place] [address] Procedure Note Interface, External Ris In - 01/13/2020 10:48 AM INFORMATION ASSURANCE ANALYST FINAL REPORT Examination: Fluoroscopic guided lumbar puncture for cervical myelographic imaging Clinical indication: Upper extremity paresthesias and numbness. Status post ACDF. Physician: Dr. Kasie Poole Anesthesia: None. Medications: 1% lidocaine and bicarbonate. Exposure/ DAP: 1589.80 mGy-cm2 Flouro time: 00:00:22 Procedure: Informed consent was obtained [...] for cervical myelographic imaging. Signed: Kasie Poole MD Report Verified Date/Time: 01/13/2020 10:46:08 Reading Location: [facility] Room [address] [place] [address] Performing Organization Address City/State/Zipcode Ph one Number [facility] RIS after 06/21/2019 Insurance Payer Benefit Subscriber ID Type Phone Address Plan / Group [facility] xxxxxxxxxxx MEDICARE ADV -[id number] Advance Directives For more information, please contact: [address] [address] Date Inactivated Comments Code Status Date Activated 05/03/2019 3:24 PM Full Code 05/02/2019 3:48 PM This code status was determined by: Patient 05/02/2019 3:47 PM Full Code 05/02/2019 7:22 AM This code status was determined by: Patient 12/14/2014 5:31 PM Full Code 12/10/2014 11:50 PM This code status was determined by: Patient 10/31/2014 5:35 PM Full Code 10/26/2014 8:49 PM This code status was determined by: Patient
[2020-06-21] MEDS ORDERED: HYDROCODONE/APAP 5MG-325MG TAB ONE (12:49)
--- NOTE | 2020-06-21 13:49 | Diagnostic Imaging Report ---
EXAM: LEFT Lower Extremity Duplex Ultrasound INDICATION: ^LEFT CALF PAIN R/O DVT COMPARISON: None TECHNIQUE: Wolfe scale, color Doppler and spectral waveform analysis of the left lower extremity deep venous system was performed. FINDINGS: Common Femoral: Fully compressible with normal spontaneous waveforms. Proximal Greater Saphenous: Fully compressible. Femoral: Partially compressible with nonocclusive filling defect. Proximal Deep Femoral: Normal spontaneous waveforms. Popliteal: Fully compressible with normal spontaneous waveforms. Incidental note made of 3.1 x 2.2 x 3.7 cm anechoic fluid collection posterior to the knee, consistent with Morales cyst. 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 Signed by: Isacc Taylor MD on 06/21/2020 1:45 PM
[2020-06-21 14:16] LABS: BASOPHILS # (AUTO) 0.1 (0.0-0.1); BASOPHILS % 1.4 % (0.0-1.0); EOSINOPHILS # (AUTO) 0.3 (0.0-0.4); EOSINOPHILS % 3.8 % (0.0-6.0); LYMPHOCYTES # (AUTO) 1.8 (1.0-3.2); LYMPHOCYTES % 25.6 % (18.0-39.1); MEAN CORPUSCULAR HEMOGLOBIN 29.4 pg (28-32); MEAN CORPUSCULAR HGB CONC 31.7 g/dL (31-35); MEAN CORPUSCULAR VOLUME 92.8 fL (81-99); MONOCYTES # (AUTO) 0.6 (0.2-0.8); MONOCYTES % 8.9 % (4.4-11.3); NEUTROPHILS # (AUTO) 4.2 (2.1-6.9); NEUTROPHILS % 59.9 % (38.7-80.0); PLATELET COUNT 210 x10e3/uL (140-360); RED BLOOD COUNT 4.42 x10e6/uL (3.6-5.1); RED CELL DISTRIBUTION WIDTH 13.5 % (11.7-14.4)
[2020-06-21] MEDS ORDERED: PREDNISONE20 MG PO (14:48)
[2020-06-21] MEDS ORDERED: ULTRAM50 MG PO (14:48)
--- NOTE | 2020-06-21 14:48 | Emergency Department Note ---
History of Present Illnes History of Present Illness Chief Complaint: left behind the knee pain/left calf pain History of Present Illness This is a 74 year old female. was doing well prior to this. 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 Any updates have been documented here. Past Medical History Recent Fever: No Clinical Suspicion of Infectio: No New/Unexplained Change in Ment: No Past Medical History: Hypertension, Diabetes, A-Fib, Hyperlipedemia, DVT/PE Other Medical History: DVT previous kidney cancer NEUROPATHY Past Surgical History: Cholecysctectomy, Appendectomy, Hysterectomy, Tubal Ligation Other Surgery: left kidney removal Social History Smoking Cessation: Never Smoker Alcohol Use: None Any Illegal Drug Use: No Other Last Tetanus: UNKNOWN Any Pre-Existing Lines (PICC,: No Review of Systems Review of Systems Constitutional: Reports no symptoms EENTM: Reports no symptoms Cardiovascular: Reports no symptoms Respiratory: Reports no symptoms Gastrointestinal: Reports no symptoms Genitourinary: Reports no symptoms Musculoskeletal: Reports as per HPI Integumentary: Reports no symptoms Neurological: Reports no symptoms Psychological: Reports no symptoms Endocrine: Reports no symptoms Hematological/Lymphatic: Reports no symptoms Review of other systems: All other systems negative Physical Exam Related Data Allergies: Coded Allergies: methylprednisolone (Verified Allergy, Unknown, rash, 02/07/19) Triage Vital Signs Vital Signs Date Time Temp Pulse Resp B/P (MAP) Pulse Ox O2 Delivery O2 Flow Rate FiO2 06/21/20 12:07 97.6 71 16 157/81 100 Room Air Vital signs reviewed: Yes Physical Exam CONSTITUTIONAL Constitutional: Present well-developed, Present well-nourished HENT HENT: Present normocephalic, Present atraumatic, Present oropharynx clear/moist, Present nose normal HENT L/R: Present left ext ear normal, Present right ext ear normal EYES Eyes: Reports PERRL, Reports conjunctivae normal NECK Neck: Present ROM normal, Present supple PULMONARY Pulmonary: Present effort normal, Present breath sounds normal CARDIOVASCULAR Cardiovascular: Present regular rhythm, Present heart sounds normal, Present capillary refill normal, Present normal rate GASTROINTESTINAL Abdominal: Present soft, Present nontender, Present bowel sounds normal GENITOURINARY Genitourinary: Present exam deferred SKIN Skin: Present warm, Present dry MUSCULOSKELETAL Musculoskeletal: Present tenderness (posterior left knee/calf), Present swelling NEUROLOGICAL Neurological: Present alert, Present oriented x 3, Present no gross motor or sensory deficits PSYCHOLOGICAL Psychological: Present mood/affect normal, Present judgement normal Results Laboratory Result Diagram: 06/21/20 1304 Laboratory Laboratory Tests Test 06/21/20 13:04 White Blood Count 7.08 x10e3/uL (4.8-10.8) Red Blood Count 4.42 x10e6/uL (3.6-5.1) Hemoglobin 13.0 g/dL (12.0-16.0) Hematocrit 41.0 % (34.2-44.1) Mean Corpuscular Volume 92.8 fL (81-99) Mean Corpuscular Hemoglobin 29.4 pg (28-32) Mean Corpuscular Hemoglobin Concent 31.7 g/dL (31-35) Red Cell Distribution Width 13.5 % (11.7-14.4) Platelet Count 210 x10e3/uL (140-360) Neutrophils (%) (Auto) 59.9 % (38.7-80.0) Lymphocytes (%) (Auto) 25.6 % (18.0-39.1) Monocytes (%) (Auto) 8.9 % (4.4-11.3) Eosinophils (%) (Auto) 3.8 % (0.0-6.0) Basophils (%) (Auto) 1.4 % (0.0-1.0) Neutrophils # (Auto) 4.2 (2.1-6.9) Lymphocytes # (Auto) 1.8 (1.0-3.2) Monocytes # (Auto) 0.6 (0.2-0.8) Eosinophils # (Auto) 0.3 (0.0-0.4) Basophils # (Auto) 0.1 (0.0-0.1) Absolute Immature Granulocyte (auto 0.03 x10e3/uL (0-0.1) Lab results reviewed: Yes Laboratory comments CMP NORMAL, D ULNXL=707, INR =2.4 Imaging Imaging results reviewed: Yes (US lle = + bakers cyst, 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) Assessment & Plan Medical Decision Making MDM dvt, morales's cyst Reassessment Reassessment no more pain s/p norco and walks well Assessment & Plan Final Impression: (1) Morales cyst Depart Disposition: HOME, SELF-CARE Last Vital Signs Date Time Temp Pulse Resp B/P (MAP) Pulse Ox O2 Delivery O2 Flow Rate FiO2 06/21/20 12:07 97.6 71 16 157/81 100 Room Air Home Meds Active Scripts Tramadol Hcl (ULTRAM) 50 Mg Tablet, 50 MG PO Q6H PRN for MODERATE PAIN (4-6), #20 TAB TAKE AFTER PREDNISONE TO CONTROL PAIN IF NEED BE Prov:FELICIANO BARRETO 06/21/20 Prednisone (PREDNISONE) 20 Mg Tab, 60 MG PO DAILY PRN for Mild Pain (1-3) or Fever>100.8, #18 TAB TAKE 3 20 MG TABS ORALLY // ONLY TAKE IF BLOOD GLUCOSE IS LESS THAN 150 Prov:FELICIANO BARRETO 06/21/20 Benzonatate (TESSALON PERLE) 100 Mg Capsule, 100 MG PO TID PRN for cough for 5 Days, #15 Prov:AYAH DORAN MD 12/18/19 Albuterol Sulfate (VENTOLIN HFA) 18 Gm Hfa.aer.ad, 2 INH PO QID PRN for cough for 7 Days, #1 INH Prov:AYAH DORAN MD 12/18/19 Reported Medications Gabapentin (GABAPENTIN) 300 Mg Capsule, 300 MG PO BEDTIME 04/29/13 Warfarin Sodium (COUMADIN) 5 Mg Tablet, 5 MG PO DAILY 04/29/13 Enoxaparin Sodium (LOVENOX) 80 Mg/0.8 Ml Inj, 80 MG PO BID 04/29/13 Cholecalciferol (Vitamin D3) (VITAMIN D) 5,000 Unit Tablet, 5000 UNITS PO DAILY 04/26/13 [place]-3 Fatty Acids (FISH OIL) 500 Mg Capsule.dr, 500 MG PO DAILY 04/26/13 Metformin Hcl (METFORMIN HCL) 500 Mg Tablet, 500 MG PO BID 04/26/13 Lisinopril (LISINOPRIL) 5 Mg Tablet, 5 MG PO DAILY 04/26/13 Atenolol (ATENOLOL) 50 Mg Tablet, 50 MG PO DAILY 04/26/13 Medications in the ED Sodium Chloride 10 ml PRN PRN INJ IV SITE FLUSH Last administered on 06/21/20at 12:50; Admin Dose 10 ML; Start 06/21/20 at 12:30; Stop 07/21/20 at 12:29 Acetaminophen/ Hydrocodone Bitart 1 ea ONCE ONCE PO Last administered on 06/21/20at 12:50; Admin Dose 1 EA; Start 06/21/20 at 12:30; Stop 06/21/20 at 12:31; Status DC Acetaminophen/ Hydrocodone Bitart 1 ea STK-MED ONCE .ROUTE ; Start 06/21/20 at 12:49; Stop 06/21/20 at 12:44; Status DC FELICIANO BARRETO Jun 21, 2020 14:48
[2020-06-21 15:26] VITALS: BP 150/76
== END 2020-06-21 15:11 | disposition home or self-care (01) ==
LOC: FSED 12:22
DX: M79.662 Pain in left lower leg (principal); M71.22 Synovial cyst of popliteal space [Baker], left knee; Z86.718 Personal history of other venous thrombosis and embolism
CPT/HCPCS: 36415; 80048; 85025; 85379; 85610; 93971; 99284

== ENCOUNTER 2021-04-14 13:05 | Emergency (ER) | payer MEDICARE ==
[~2021-04-14] VITALS: Ht 154.9 cm; Wt 92.2 kg
[~2021-04-14 13:05] MED LIST changes: +PREDNISONE20 MG PO; +ULTRAM50 MG PO
[2021-04-14] MEDS ORDERED: NITROGLYCERIN 2% OINT 1 GM PKT TOP ONE (13:30)
[2021-04-14] MEDS ORDERED: ONDANSETRON HCL INJ 2MG/ML 2ML 2 MG/ML VIAL IV PRN (13:30)
[2021-04-14] MEDS ORDERED: ASPIRIN 325 MG TAB PO ONE (13:30)
[2021-04-14] MEDS ORDERED: ACETAMINOPHEN 325 MG TAB PO ONE (13:30)
[2021-04-14] MEDS ORDERED: ALBUTEROL SULF 0.083% NEB SOLN 3 ML NEB NEB STA (13:49)
[2021-04-14] MEDS ORDERED: IPRATROPIUM BROMIDE 0.02% 2.5 ML NEB NEB STA (13:49)
[2021-04-14] MEDS ORDERED: FUROSEMIDE INJ 10 MG/ML 4 ML VIAL IV ONE (14:00)
[2021-04-14] MEDS ORDERED: HYDRALAZINE HCL 20 MG/ML VIAL IV ONE (14:00)
[2021-04-14] MEDS ORDERED: ASPIRIN 325 MG TAB ONE (14:11)
[2021-04-14] MEDS ORDERED: ONDANSETRON HCL INJ 2MG/ML 2ML 2 MG/ML VIAL ONE (14:11)
[2021-04-14] MEDS ORDERED: FUROSEMIDE INJ 10 MG/ML 4 ML VIAL ONE (14:12)
[2021-04-14] MEDS ORDERED: ALBUTEROL SULF 0.083% NEB SOLN 3 ML NEB ONE (14:12)
[2021-04-14] MEDS ORDERED: NITROGLYCERIN 2% OINT 1 GM PKT ONE (14:12)
[2021-04-14] MEDS ORDERED: ACETAMINOPHEN 325 MG TAB ONE (14:12)
[2021-04-14] MEDS ORDERED: IPRATROPIUM BROMIDE 0.02% 2.5 ML NEB ONE (14:13)
[2021-04-14] MEDS ORDERED: LISINOPRIL10 MG PO (15:02)
[2021-04-14] MEDS ORDERED: IPRAT-ALBUT 0.5-3 ML NEB (15:02)
[2021-04-14] MEDS ORDERED: FUROSEMIDE40 MG PO (15:02)
[2021-04-14 15:45] VITALS: BP 125/60
== END 2021-04-14 15:30 | disposition home or self-care (01) ==
LOC: FSED 13:20
DX: R06.02 Shortness of breath (principal); I50.9 Heart failure, unspecified; J44.9 Chronic obstructive pulmonary disease, unspecified; E11.65 Type 2 diabetes mellitus with hyperglycemia; R94.31 Abnormal electrocardiogram [ECG] [EKG]; I10 Essential (primary) hypertension; E78.5 Hyperlipidemia, unspecified; I48.91 Unspecified atrial fibrillation; Z86.718 Personal history of other venous thrombosis and embolism; Z85.528 Personal history of other malignant neoplasm of kidney
CPT/HCPCS: 71045; 93005; 99284; J1940; J2405; 80048; 80076; 81003; 83880; 84484; 85025; 85379; 85610; 96374; 96375

== ENCOUNTER 2025-07-22 11:52 | Inpatient (IN) | payer MEDICARE ==
[~2025-07-22] VITALS: Ht 154.9 cm; Wt 86.9 kg
[~2025-07-22 11:52] MED LIST changes: +AMLODIPINE BESYL5 MG PO; +ARIMIDEX1 MG PO; +CARVEDILOL12.5 MG PO; +DONEPEZIL HCL5 MG; +FUROSEMIDE40 MG PO; +GLIMEPIRIDE4 MG; +IPRAT-ALBUT 0.5-3 ML NEB; +LISINOPRIL10 MG PO; +LYRICA75 MG PO; +SIMVASTATIN40 MG PO
[2025-07-22 12:04] VITALS: TEMP 97.6
[2025-07-22] MEDS: FUROSEMIDE INJ 10 MG/ML 4 ML VIAL IV ONE (13:19)
[2025-07-22] MEDS: ASPIRIN 81 MG CHEW TAB PO ONE (13:19)
[2025-07-22] MEDS ORDERED: ONDANSETRON HCL INJ 2MG/ML 2ML 2 MG/ML VIAL IV PRN ×2 (15:15→16:30)
[2025-07-22] MEDS ORDERED: ALBUTEROL/IPRATROPIUM 3 ML NEB NEB PRN (15:15)
[2025-07-22] MEDS ORDERED: ACETAMINOPHEN 325 MG TAB PO PRN ×2 (15:15→16:30)
[2025-07-22] MEDS ORDERED: SIMETHICONE 80 MG CHEW PO PRN (15:15)
[2025-07-22] MEDS ORDERED: POTASSIUM CHLORIDE 20 MEQ TAB CR PO PRN (15:15)
[2025-07-22] MEDS ORDERED: DOCUSATE SODIUM 100 MG CAP PO PRN (15:15)
[2025-07-22] MEDS ORDERED: HYDRALAZINE HCL 20 MG/ML VIAL IV PRN (15:15)
[2025-07-22] MEDS ORDERED: BENZONATATE 100 MG CAP PO PRN (15:15)
[2025-07-22] MEDS ORDERED: DEXTROSE 50% SYRINGE 50 ML IV PRN ×2 (15:15→16:30)
[2025-07-22] MEDS ORDERED: DIPHENHYDRAMINE HCL 25 MG CAP PO PRN (15:15)
[2025-07-22] MEDS ORDERED: LIDOCAINE 4% PATCH TP PRN (15:15)
[2025-07-22 16:13] VITALS: PULSE 56; RESP 16
[2025-07-22 16:30] VITALS: BP 121/93; PULSE 61; RESP 18; TEMP 97.7; O2SAT 96
[2025-07-22] MEDS ORDERED: DIPHENHYDRAMINE HCL INJ 50 MG/ML VIAL IV PRN (16:30)
[2025-07-22] MEDS: INSULIN REGULAR, HUMAN 100 UNIT/1 ML SQ SCH (16:30)
[2025-07-22 17:00] VITALS: BP 121/93; PULSE 61; RESP 18; TEMP 97.7; O2SAT 99
[2025-07-22] MEDS ORDERED: LASIX20 MG PO (17:02)
[2025-07-22] MEDS ORDERED: POTASSIUM CHLO20 ME2 (17:06)
[2025-07-22] MEDS ORDERED: FAMOTIDINE20 MG PO (17:06)
[2025-07-22] MEDS ORDERED: VENTOLIN HFA18 GM PO (17:06)
[2025-07-22 17:08] VITALS: BP 121/93; PULSE 61; RESP 18; TEMP 97.7; O2SAT 99
[2025-07-22] MEDS: ENOXAPARIN SOD INJ 40 MG/0.4 ML SYR SC SCH (18:00)
[2025-07-22] MEDS: FUROSEMIDE INJ 10 MG/ML 4 ML VIAL IV SCH (18:00)
[2025-07-22] MEDS: FAMOTIDINE 20 MG/2 ML VIAL IV SCH (18:00)
[2025-07-22] MEDS: LOSARTAN POTASSIUM 25 MG TAB PO SCH (18:01)
[2025-07-22] MEDS: CLOPIDOGREL BISULFATE 75 MG TAB PO SCH (19:52)
[2025-07-22 20:00] VITALS: BP 116/58; PULSE 66; RESP 17; TEMP 97.6; O2SAT 100
[2025-07-22] MEDS ORDERED: MELATONIN 5 MG TABLET PO PRN (21:00)
[2025-07-23] VITALS (10 sets, daily range): BP systolic 106–127; BP diastolic 58–87; PULSE 61–71; RESP 17–19; TEMP 97.6–98; O2SAT 97–100
[2025-07-23 06:54] LABS: BASOPHILS % 1.3 % (0.0-1.0); EOSINOPHILS % 3.6 % (0.0-6.0); LYMPHOCYTES % 18.7 % (18.0-39.1); MONOCYTES % 12.6 % (4.4-11.3); NEUTROPHILS % 63.6 % (38.7-80.0); RED CELL DISTRIBUTION WIDTH 15.6 % (11.7-14.4)
[2025-07-23 07:04] LABS: INR 2.51
[2025-07-23 07:21] LABS: CHOL/HDL RATIO 2.3 (3.0-3.6); LDL CHOLESTEROL 26.0 MG/DL (60-130)
[2025-07-23 07:22] LABS: EST GLOMERULAR FILTRATION RATE 33.0 ML/MIN (>=60); PHOSPHORUS 3.7 MG/DL (2.3-4.7)
[2025-07-23] MEDS: PANTOPRAZOLE SOD 40 MG TABEC PO SCH (08:38)
[2025-07-23] MEDS: WARFARIN SOD 2 MG TAB PO SCH (17:41)
[2025-07-23] MEDS: FUROSEMIDE INJ 10 MG/ML 4 ML VIAL IV ONE (18:22)
[2025-07-23] MEDS: SIMVASTATIN 40 MG TAB PO SCH (20:42)
[2025-07-24] VITALS (9 sets, daily range): BP systolic 95–146; BP diastolic 53–92; PULSE 57–79; RESP 17–18; TEMP 97.7–98.5; O2SAT 95–100
[2025-07-24 06:37] LABS: BASOPHILS % 1.3 % (0.0-1.0); EOSINOPHILS % 3.1 % (0.0-6.0); LYMPHOCYTES % 19.9 % (18.0-39.1); MONOCYTES % 12.4 % (4.4-11.3); NEUTROPHILS % 63.0 % (38.7-80.0); RED CELL DISTRIBUTION WIDTH 15.9 % (11.7-14.4)
[2025-07-24 07:01] LABS: INR 1.78
[2025-07-24 07:12] LABS: EST GLOMERULAR FILTRATION RATE 34.0 ML/MIN (>=60)
[2025-07-24] MEDS: PREGABALIN 75 MG CAP PO SCH (08:46)
[2025-07-24] MEDS: DONEPEZIL HCL 5 MG TAB PO SCH (08:47)
[2025-07-24] MEDS: ANASTROZOLE 1 MG TAB PO SCH (08:47)
[2025-07-24] MEDS: FUROSEMIDE 40 MG TAB PO SCH (08:47)
[2025-07-24] MEDS ORDERED: PLAVIX75 MG PO (15:20)
[2025-07-24] MEDS ORDERED: COZAAR25 MG PO (15:20)
[2025-07-24] MEDS ORDERED: WARFARIN SOD 2 MG TAB PO SCH (17:00)
[2025-07-24] MEDS: WARFARIN SOD 5 MG TAB PO SCH (17:40)
== END 2025-07-24 18:39 | disposition home or self-care (01) | DRG 291 ==
LOC: FSED 11:58 → ERHOLD 13:30 → MED/SURG3 16:30
PROVIDERS: ADMIT Internal Medicine; ATTEND Internal Medicine
DX: I13.0 Hypertensive heart and chronic kidney disease with heart failure and stage 1 through stage 4 chronic kidney disease, or unspecified chronic kidney disease (principal); I50.23 Acute on chronic systolic (congestive) heart failure; N17.9 Acute kidney failure, unspecified; Z79.01 Long term (current) use of anticoagulants; E87.6 Hypokalemia; G62.9 Polyneuropathy, unspecified; I48.91 Unspecified atrial fibrillation; E78.5 Hyperlipidemia, unspecified; N18.9 Chronic kidney disease, unspecified; R00.1 Bradycardia, unspecified; K21.9 Gastro-esophageal reflux disease without esophagitis; I25.119 Atherosclerotic heart disease of native coronary artery with unspecified angina pectoris; F03.A0 Unspecified dementia, mild, without behavioral disturbance, psychotic disturbance, mood disturbance, and anxiety; J44.9 Chronic obstructive pulmonary disease, unspecified; R06.00 Dyspnea, unspecified; R53.81 Other malaise; M15.9 Polyosteoarthritis, unspecified; E66.9 Obesity, unspecified; Z68.36 Body mass index [BMI] 36.0-36.9, adult; Z79.84 Long term (current) use of oral hypoglycemic drugs; I25.2 Old myocardial infarction; Z95.5 Presence of coronary angioplasty implant and graft; Z85.3 Personal history of malignant neoplasm of breast; Z85.528 Personal history of other malignant neoplasm of kidney; Z90.5 Acquired absence of kidney; Z90.49 Acquired absence of other specified parts of digestive tract; Z90.710 Acquired absence of both cervix and uterus; Z88.8 Allergy status to other drugs, medicaments and biological substances; Z82.49 Family history of ischemic heart disease and other diseases of the circulatory system
CPT/HCPCS: 36415; 71045; 80048; 80053; 80061; 81003; 82550; 82948; 83036; 83735; 83880; 84100; 84443; 84484; 85025; 85610; 85730; 93005; 93306; 94799; 99284; J1308; J1650; J1938; J2470

== ENCOUNTER 2025-09-05 23:45 | Inpatient (IN) | payer MEDICARE ==
[~2025-09-05] VITALS: Ht 152.4 cm; Wt 81.6 kg
[~2025-09-05 23:45] MED LIST changes: +COZAAR25 MG PO; +FAMOTIDINE20 MG PO; +LASIX20 MG PO; +PLAVIX75 MG PO; +POTASSIUM CHLO20 ME2
[2025-09-05 23:50] VITALS: TEMP 98.9
[2025-09-06] VITALS (12 sets, daily range): BP systolic 102–144; BP diastolic 70–99; PULSE 53–74; RESP 18–20; TEMP 97.5–98.3; O2SAT 97–100
[2025-09-06] MEDS ORDERED: SODIUM CHLORIDE 0.9% 1000ML 1,000 ML IV SCH (00:15)
[2025-09-06] MEDS: ONDANSETRON HCL INJ 2MG/ML 2ML 2 MG/ML VIAL IV STA (00:48)
[2025-09-06] MEDS: FENTANYL CITRATE/PF 100MCG/2 ML INJ IV ONE (00:48)
[2025-09-06] MEDS: FAMOTIDINE 20 MG/2 ML VIAL IV STA (00:49)
[2025-09-06] MEDS: FAMOTIDINE 20 MG TAB PO SCH (02:00)
[2025-09-06] MEDS ORDERED: ONDANSETRON HCL INJ 2MG/ML 2ML 2 MG/ML VIAL IV PRN (02:00)
[2025-09-06] MEDS ORDERED: SODIUM CHLORIDE FLUSH 10 ML SYR INJ PRN (02:00)
[2025-09-06] MEDS: FUROSEMIDE INJ 10 MG/ML 4 ML VIAL IV ONE (05:52)
[2025-09-06] MEDS ORDERED: HYDRALAZINE HCL 20 MG/ML VIAL IV PRN (14:30)
[2025-09-06] MEDS ORDERED: SIMETHICONE 80 MG CHEW PO PRN (14:30)
[2025-09-06] MEDS ORDERED: POTASSIUM CHLORIDE 20 MEQ TAB CR PO PRN (14:30)
[2025-09-06] MEDS ORDERED: DOCUSATE SODIUM 100 MG CAP PO PRN (14:30)
[2025-09-06] MEDS ORDERED: LIDOCAINE 4% PATCH TP PRN (14:30)
[2025-09-06] MEDS ORDERED: HYDROCODONE/APAP 5MG-325MG TAB PO PRN (14:30)
[2025-09-06] MEDS ORDERED: DIPHENHYDRAMINE HCL 25 MG CAP PO PRN (14:30)
[2025-09-06] MEDS ORDERED: DEXTROSE 50% SYRINGE 50 ML IV PRN ×2 (14:30)
[2025-09-06] MEDS ORDERED: ACETAMINOPHEN 325 MG TAB PO PRN (14:30)
[2025-09-06] MEDS ORDERED: BENZONATATE 100 MG CAP PO PRN (14:30)
[2025-09-06] MEDS ORDERED: MELATONIN 5 MG TABLET PO PRN (14:30)
[2025-09-06] MEDS ORDERED: ALBUTEROL/IPRATROPIUM 3 ML NEB NEB PRN (14:30)
[2025-09-06 15:19] LABS: BASOPHILS % 1.3 % (0.0-1.0); EOSINOPHILS % 3.8 % (0.0-6.0); LYMPHOCYTES % 16.3 % (18.0-39.1); MONOCYTES % 10.4 % (4.4-11.3); NEUTROPHILS % 67.9 % (38.7-80.0); RED CELL DISTRIBUTION WIDTH 16.1 % (11.7-14.4)
[2025-09-06 15:33] LABS: INR 2.29
[2025-09-06 15:37] LABS: EST GLOMERULAR FILTRATION RATE 36.0 ML/MIN (>=60)
[2025-09-06 15:49] LABS: PHOSPHORUS 4.5 MG/DL (2.3-4.7)
[2025-09-06] MEDS: WARFARIN SOD 5 MG TAB PO SCH (17:27)
[2025-09-06] MEDS: INSULIN LISPRO 100 UNIT/1 ML 3ML VIAL SQ SCH (17:28)
[2025-09-06] MEDS: FUROSEMIDE 20 MG TAB PO SCH (17:28)
[2025-09-06] MEDS: SIMVASTATIN 40 MG TAB PO SCH (20:31)
[2025-09-07] VITALS (9 sets, daily range): BP systolic 103–134; BP diastolic 73–95; PULSE 61–72; RESP 12–20; TEMP 97.3–98.6; O2SAT 97–98
[2025-09-07 05:37] LABS: BASOPHILS % 1.4 % (0.0-1.0); EOSINOPHILS % 4.6 % (0.0-6.0); LYMPHOCYTES % 23.6 % (18.0-39.1); MONOCYTES % 11.2 % (4.4-11.3); NEUTROPHILS % 59.1 % (38.7-80.0); RED CELL DISTRIBUTION WIDTH 15.9 % (11.7-14.4)
[2025-09-07 06:21] LABS: EST GLOMERULAR FILTRATION RATE 35.0 ML/MIN (>=60)
[2025-09-07 06:36] LABS: CHOL/HDL RATIO 2.1 (3.0-3.6); LDL CHOLESTEROL 32.0 MG/DL (60-130); PHOSPHORUS 4.6 MG/DL (2.3-4.7)
[2025-09-07] MEDS ORDERED: WARFARIN SOD 5 MG TAB PO SCH (09:00)
[2025-09-07] MEDS: CLOPIDOGREL BISULFATE 75 MG TAB PO SCH (09:00)
[2025-09-07] MEDS: PREGABALIN 75 MG CAP PO SCH (09:56)
[2025-09-07] MEDS: ANASTROZOLE 1 MG TAB PO SCH (09:57)
[2025-09-07] MEDS: DONEPEZIL HCL 5 MG TAB PO SCH (09:58)
[2025-09-07] MEDS: LOSARTAN POTASSIUM 25 MG TAB PO SCH (09:58)
[2025-09-07] MEDS: PANTOPRAZOLE SOD 40 MG TABEC PO SCH (09:58)
== END 2025-09-07 17:08 | disposition home or self-care (01) | DRG 291 ==
LOC: FSED 23:49 → ERHOLD 09-06 01:29 → MED/SURG3 09-06 04:40
PROVIDERS: ADMIT Internal Medicine; ATTEND Internal Medicine
DX: I11.0 Hypertensive heart disease with heart failure (principal); I50.43 Acute on chronic combined systolic (congestive) and diastolic (congestive) heart failure; L76.34 Postprocedural seroma of skin and subcutaneous tissue following other procedure; Z79.01 Long term (current) use of anticoagulants; E11.9 Type 2 diabetes mellitus without complications; I25.10 Atherosclerotic heart disease of native coronary artery without angina pectoris; E78.5 Hyperlipidemia, unspecified; I48.91 Unspecified atrial fibrillation; K21.9 Gastro-esophageal reflux disease without esophagitis; J44.9 Chronic obstructive pulmonary disease, unspecified; Z79.02 Long term (current) use of antithrombotics/antiplatelets; Z79.84 Long term (current) use of oral hypoglycemic drugs; Z95.5 Presence of coronary angioplasty implant and graft; Z90.5 Acquired absence of kidney; Z85.3 Personal history of malignant neoplasm of breast; Z85.528 Personal history of other malignant neoplasm of kidney; Z86.711 Personal history of pulmonary embolism; Z90.49 Acquired absence of other specified parts of digestive tract; Z90.710 Acquired absence of both cervix and uterus; Z88.8 Allergy status to other drugs, medicaments and biological substances
CPT/HCPCS: 36415; 71045; 71250; 74176; 80048; 80053; 80061; 81003; 82550; 82948; 83036; 83735; 83880; 84100; 84443; 84484; 85025; 85379; 85610; 93005; 93970; 94799; 99284; J1308; J2405; J2470; J7030